=== PATIENT | female | born 1990 | race African-American/Black ===

== ENCOUNTER 2020-02-10 16:17 | Day surgery (SDC) | payer BC, SELFPAY ==
[2020-02-10 16:34] VITALS: BP 142/88; PULSE 127; RESP 18; TEMP 37.3; O2SAT 97
[2020-02-10] MEDS: MORPHINE SULFATE (*CRX) 4 MG/ML INJ IV PUSH (18:01)
[2020-02-10] MEDS: ONDANSETRON INJ 4 MG/2 ML VIAL IV PUSH (18:02)
[2020-02-10] MEDS: SODIUM CHLORIDE 0.9% IV 1,000 ML 999 ML IV CONT (18:02)
[2020-02-10 18:14] VITALS: BP 127/79; PULSE 103; RESP 20; TEMP 36.7; O2SAT 98
[2020-02-10 18:16] LABS: Basophils Percent Auto 0.2 % (0.2-1.2); Eosinophils Percent Auto 0.1 % (0-4.4); Hematocrit 38.3 % (37.0-47.0); Immature Granulocyte Percent A 0.6 % (0-0.5); Lymphocytes Absolute Auto 2.01 K/mm3 (0.9-3.2); Lymphocytes Percent Auto 11.2 % (18.3-44.2); Mean Corpuscular HGB Conc 33.9 g/dl (32-36); Mean Corpuscular Hemoglobin 27.5 pg (26-34); Mean Corpuscular Volume 81.1 fl (80-100); Mean Platelet Volume 11.5 fl (7.4-10.4); Monocytes Absolute Auto 0.7 K/mm3 (0.1-0.6); Monocytes Percent Auto 4.1 % (2.6-8.5); Neutrophils Percent Auto 83.8 % (45.5-73.1); Platelet Count Result 249 k/mm3 (150-375); Red Blood Count 4.72 M/mm3 (4.2-5.4); Red Cell Distribution Width 14.7 % (11.5-14.5); White Blood Count 17.9 K/mm3 (4.5-10.0)
[2020-02-10 18:27] LABS: Anion Gap 14 mmol/L (8-16); Blood Urea Nitrogen 8 mg/dL (7-17); Calcium 9.8 mg/dL (8.4-10.2); Carbon Dioxide 25 mmol/L (22-30); Chloride 101 mmol/L (98-107); Estimated CRCL calculation 86 ml/min; Estimated Glomerular Filt Rate > 60; Glucose 100 mg/dL (65-105); Potassium 3.7 mmol/L (3.4-5.0); Sodium 140 mmol/L (137-145)
[2020-02-10 18:29] LABS: Add Urine Microscopic? YES; Appearance Urine Cloudy (Clear); Bilirubin Urine Negative (Negative); Blood Urine 3+ (Negative); Color Urine Red (Yellow); Glucose Urine UA Negative (Negative); Ketones Urine Trace mg/dL (Negative); Leukocyte Esterase Ur 2+ LEU/UL (Negative); Mucus Urine Rare /lpf; Nitrate Urine Negative (Negative); Protein Urine 3+ mg/dL (Negative); RBC Urine >75 /hpf (0-2); Specific Grav Ur 1.018 (1.001-1.035); Squamous Epithelial Cell Urine Many /hpf (Few); Urobilinogen Urine Negative mg/dL (<2.0); WBC Urine 51-75 /hpf
[2020-02-10] MEDS: AMPICILLIN SULB 3 GM/NS 100 ML 3 GM/100 ML VIAL IVPB (18:41)
--- NOTE | 2020-02-10 19:02 | ED.GENADULT ---
HPI - General Adult General Chief complaint: Headache Stated complaint: back ache, fever, headache, chills - COVID Time Seen by Provider: 02/10/20 16:56 History of Present Illness HPI narrative: Patient is a 29-year-old female who presents ER with lower abdominal pain and fever. Patient on 01/26/2020 was found to have a 9-week that did not have a heartbeat. On 02/05/2020 after not passing her products of conception she was started on Cytotec. She sees Dr. Rice at [facility]. Patient reports high fever today. She has been having increased cramping in her lower abdomen with uptake and vaginal bleeding of 1 pad every 1-2 hours. Malodorous discharge reported by patient. Related Data Home Medications Medication Instructions Recorded Confirmed lfnczytmvqym-ipk-ssie-FA-vit K tablet PO 02/10/20 [Adults Multivitamin] Allergies Allergy/AdvReac Type Severity Reaction Status Date / Time No Known Allergies Allergy Verified 02/10/20 16:41 Review of Systems Review of Systems: All systems reviewed & are unremarkable except as noted in HPI and below Constitutional: Constitutional: Reports chills, Reports fever(s) and Reports weakness ENT: Denies nasal congestion and Denies sore throat Cardiovascular: Cardiovascular: Denies chest pain, Denies rapid heart rate and Denies radiating jaw, neck or arm pain Respiratory: Respiratory: Denies cough and Denies dyspnea Gastrointestinal: Gastrointestinal: Reports abdominal pain, Denies diarrhea, Denies nausea and Denies vomiting Genitourinary: Genitourinary: Reports abnormal vaginal bleeding and Denies vaginal discharge PMFSH Past Medical History Medical History (Updated 02/10/20 @ 19:15 by Dk Sky MD) Healthy female adult Surgical History Surgical History (Updated 02/10/20 @ 19:12 by Dk Sky MD) No pertinent past surgical history Social History Social History (Updated 02/10/20 @ 19:12 by Dk Sky MD) Smoking status: Never smoker Gender identity (if verbalized by the patient): Female Exam Narrative: Exam Narrative: GENERAL: Uncomfortable-appearing, well-nourished, and in no acute distress. HEAD: Normocephalic, atraumatic. CHEST: Clear to auscultation. No respiratory distress. HEART: Tachycardic and regular. Normal peripheral pulses. ABDOMEN: Soft, tender palpation suprapubic region, nondistended. Pelvic: Normal external genitalia, small amount of blood within the vagina that is dark in appearance that is oozing from the cervical os, patient with discomfort with insertion of speculum. No malodorous discharge. EXTREMITIES: Normal range of motion. No edema. SKIN: Warm, dry, no rash. NEURO: Alert and oriented x3. Course Course Emergency Course: Patient informed of results. Discussed case with Dr. Torrez. Patient will receive 3 g of Unasyn. She has been n.p.o. all day long. She will go to the OR this evening for a D&C. Vital Signs Vital signs: Vital Signs Temperature 99.1 F 02/10/20 16:34 Pulse Rate 127 H 02/10/20 16:34 Respiratory Rate 18 02/10/20 16:34 Blood Pressure 142/88 H 02/10/20 16:34 Pulse Oximetry 97 02/10/20 16:34 Temperature 98.1 F 02/10/20 18:14 Pulse Rate 103 H 02/10/20 18:14 Respiratory Rate 20 02/10/20 18:14 Blood Pressure 127/79 02/10/20 18:14 Pulse Oximetry 98 02/10/20 18:14 Medical Decision Making Vital Signs Vital Signs: Vital Signs Temperature 99.1 F 02/10/20 16:34 Pulse Rate 127 H 02/10/20 16:34 Respiratory Rate 18 02/10/20 16:34 Blood Pressure 142/88 H 02/10/20 16:34 Pulse Oximetry 97 02/10/20 16:34 Temperature 98.1 F 02/10/20 18:14 Pulse Rate 103 H 02/10/20 18:14 Respiratory Rate 20 02/10/20 18:14 Blood Pressure 127/79 02/10/20 18:14 Pulse Oximetry 98 02/10/20 18:14 Lab Data Result diagrams: 02/10/20 18:04 02/10/20 18:03 Labs: Lab Results 02/10/20 02/10/20 02/10/20 Range
--- NOTE | 2020-02-10 19:31 | WPDANESEPPF ---
Anes - Initial Pre Proc Eval Procedure: Operation Date: 02/10/20 18:50 Proposed Procedures p D&C Suction and Nava More MD Date/Time: 02/10/20 19:31 Pre Op Diagnosis: back ache, fever, headache, chills - COVID Patient Data Age: 29 Gender: F Height: 5 ft Weight: 84.3 kg Last Vital Signs Temp 36.7 C 02/10/20 18:14 Pulse 103 H 02/10/20 18:14 Resp 20 02/10/20 18:14 BP 127/79 02/10/20 18:14 Pulse Ox 98 02/10/20 18:14 Allergies Allergy/AdvReac Type Severity Reaction Status Date / Time No Known Allergies Allergy Verified 02/10/20 16:41 Home Medications Medication Instructions Recorded Confirmed Type fcslouliajew-bnv-mjyd-FA-vit K tablet PO 02/10/20 History [Adults Multivitamin] Laboratory Tests 02/10/20 02/10/20 02/10/20 18:03 18:04 18:04 WBC 17.9 K/mm3 H K/mm3 (4.5-10.0) RBC 4.72 M/mm3 M/mm3 (4.2-5.4) Hgb 13.0 g/dL g/dL (12.0-15.0) Hct 38.3 % % (37.0-47.0) MCV 81.1 fl fl (80-100) MCH 27.5 pg pg (26-34) MCHC 33.9 g/dl g/dl (32-36) RDW 14.7 % H % (11.5-14.5) Plt Count 249 k/mm3 k/mm3 (150-375) MPV 11.5 fl H fl (7.4-10.4) Immature Gran % (Auto) 0.6 % H % (0-0.5) Neut % (Auto) 83.8 % H % (45.5-73.1) Lymph % (Auto) 11.2 % L % (18.3-44.2) [place] % (Auto) 4.1 % % (2.6-8.5) Eos % (Auto) 0.1 % % (0-4.4) Baso % (Auto) 0.2 % % (0.2-1.2) Lymph # (Auto) 2.01 K/mm3 K/mm3 (0.9-3.2) [place] # (Auto) 0.7 K/mm3 H K/mm3 (0.1-0.6) Eos # (Auto) 0.0 K/mm3 K/mm3 (0-0.3) Baso # (Auto) 0.0 K/mm3 K/mm3 (0.0-0.1) Abs Immat Gran (auto) 0.10 K/mm3 H K/mm3 (0.00-0.031) Absolute Neuts (auto) 15.0 K/mm3 H K/mm3 (1.3-6.7) Absolute Nucleated RBC 0.0 K/mm3 K/mm3 (0.0-0.012) Nucleated RBC % 0.0 % % (0.0-0.2) Sodium 140 mmol/L mmol/L (137-145) Potassium 3.7 mmol/L mmol/L (3.4-5.0) Chloride 101 mmol/L mmol/L (98-107) Carbon Dioxide 25 mmol/L mmol/L (22-30) Anion Gap 14 mmol/L mmol/L (8-16) BUN 8 mg/dL mg/dL (7-17) Creatinine 0.80 mg/dL mg/dL (0.7-1.0) Estim Creat Clear Calc 86 ml/min ml/min Estimated GFR > 60 (59 - ) Glucose 100 mg/dL mg/dL (65-105) Calcium 9.8 mg/dL mg/dL (8.4-10.2) Beta HCG, Quant 1725.70 mIU/ML mIU/ML Urine Color Red H (Yellow) Urine Appearance Cloudy H (Clear) Urine pH 8.0 (5.0-9.0) Ur Specific [place] 1.018 (1.001-1.035) Urine Protein 3+ mg/dL H mg/dL (Negative) Urine Glucose (UA) Negative mg/dL mg/dL (Negative) Urine Ketones Trace mg/dL mg/dL (Negative) Ur Blood (Man) 3+ H (Negative) Urine Nitrate Negative (Negative) Urine Bilirubin Negative (Negative) Urine Urobilinogen Negative mg/dL mg/dL (<2.0) Leukocyte Esterase Rfl 2+ [place]/UL H BEVERLY/UL (Negative) Urine RBC >75 /hpf H /hpf (0-2) Urine WBC 51-75 /hpf H /hpf Ur Squamous Epith Cells Many /hpf H /hpf (Few) Urine Mucus Rare /lpf /lpf Patient hx anesthesia problems: none Family hx anesthesia problems: none PMFSH Past Medical History Medical History (Updated 02/10/20 @ 19:32 by Marcellus Cantor MD) Obesity Surgical History Surgical History (Updated 02/10/20 @ 19:32 by Marcellus Cantor MD) H/O laparoscopy No pertinent past surgical history Social History Social History Smoking status: Never smoker Gender identity (if verbalized by the patient): Female Anes - Eval Final PreProcedure Day of Procedure 02/10/20 19:31 Patient weight: obese H
--- NOTE | 2020-02-10 19:38 | PM.IMHP ---
H&P: HPI History of Present Illness Date/Time: 02/10/20 19:38 Chief complaint: back ache, fever, headache, chills - COVID Narrative: 29 y/o with first trimester SAB, received Cytotec last Wednesday. Began to have bleeding and cramping. Today she has had 103F fever and chills. Was seen in urgent care, where a COVID-19 test was negative. Was sent to the ED. Review of Systems Review of Systems: All systems reviewed & are unremarkable except as noted in HPI and below PMFSH Past Medical History Medical History (Updated 02/10/20 @ 19:41 by Tyshawn More MD) Obesity Surgical History Surgical History H/O laparoscopy No pertinent past surgical history Social History Social History Smoking status: Never smoker Gender identity (if verbalized by the patient): Female Meds Home Medications and Allergies Home Medications Medication Instructions Recorded Confirmed Type jvfsqimqmkvy-jsa-fdxw-FA-vit K tablet PO 02/10/20 History [Adults Multivitamin] Allergies Allergy/AdvReac Type Severity Reaction Status Date / Time No Known Allergies Allergy Verified 02/10/20 16:41 Vital Signs Vital Signs - 24 hr 02/10/20 16:34 02/10/20 18:14 Temperature 37.3 C 36.7 C Pulse Rate 127 H 103 H Respiratory Rate 18 20 Blood Pressure 142/88 H 127/79 Pulse Oximetry 97 98 Exam Const: Orientation/consciousness: patient oriented x3 Other: Well-developed, well-nourished female in no acute distress. Neck: Thyroid: thyroid normal Lymphatic: no lymphadenopathy noted (in neck, axilla or inguinal nodes) Resp: Effort & Inspection: normal respiratory effort Auscultation: clear to auscultation bilaterally Cardio: Rate: regular rate Rhythm: regular rhythm Heart sounds: S1 normal heart sound present and S2 normal heart sound present GI: Other: ABD: Soft, nontender, nondistended. No guarding or rebound tenderness. No hepatosplenomegaly. : General: Yes no CVA tenderness Other: Deferred to OR Back/Spine/Pelvis: Back: no CVA tenderness Skin: General skin exam: normal color and no rashes or lesions noted Neuro: General: patient oriented x3 Extrem: Other: Extremities: nontender with no edema Psych: Mental Status: mental status grossly normal Affect: normal affect H&P: Results Labs Labs: Short CBC 02/10/20 Range/Units 18:04 WBC 17.9 H (4.5-10.0) K/mm3 Hgb 13.0 (12.0-15.0) g/dL Hct 38.3 (37.0-47.0) % Plt Count 249 (150-375) k/mm3 BMP 02/10/20 18:03 Sodium 140 Potassium 3.7 Chloride 101 Carbon Dioxide 25 BUN 8 Creatinine 0.80 Glucose 100 Calcium 9.8 Urine 02/10/20 Range/Units 18:04 Urine Color Red H (Yellow) Urine Appearance Cloudy H (Clear) Urine pH 8.0 (5.0-9.0) Ur Specific [place] 1.018 (1.001-1.035) Urine Protein 3+ H (Negative) mg/dL Urine Glucose (UA) Negative (Negative) mg/dL Assessment and Plan Assessment and plan (1) Incomplete with infection: Code(s): O03.39 - Incomplete spontaneous with other complications Status: Acute Additional Plan I offered her dilation with suction curettage. She understands risks of surgery to include risks of anesthesia, risks of pain, infection, bleeding, blood products, thromboembolic phenomena and damage to adjacent structures such as bowel, bladder, ureters, blood vessels and nerves. She understands all these risks and elects to proceed with surgery.
[2020-02-10] MEDS: LIDOCAINE HCL 1% LOCAL INJ 20 ML VIAL 10 ML INFILTRATE (19:54)
[2020-02-10] MEDS: KETOROLAC 30 MG/ML VIAL (*BKC) IV PUSH (20:01)
--- NOTE | 2020-02-10 20:05 | PM.DS ---
DS: Admitting Diagnosis Admitting Diagnosis Admitting Diagnosis: Incomplete SAB with infection DS: Discharge Diagnosis Discharge Diagnosis (1) Incomplete with infection: Code(s): O03.39 - Incomplete spontaneous with other complications Status: Acute DS: Data Data Completed and Pending Pending studies at discharge: Pending at discharge 02/10/20 19:55 Surgical [PTH] Routine Labs on day of discharge: Labs from last 24 hours 02/10/20 02/10/20 02/10/20 18:04 18:04 18:03 WBC 17.9 H RBC 4.72 Hgb 13.0 Hct 38.3 MCV 81.1 MCH 27.5 MCHC 33.9 RDW 14.7 H Plt Count 249 MPV 11.5 H Immature Gran % (Auto) 0.6 H Neut % (Auto) 83.8 H Lymph % (Auto) 11.2 L [place] % (Auto) 4.1 Eos % (Auto) 0.1 Baso % (Auto) 0.2 Lymph # (Auto) 2.01 [place] # (Auto) 0.7 H Eos # (Auto) 0.0 Baso # (Auto) 0.0 Abs Immat Gran (auto) 0.10 H Absolute Neuts (auto) 15.0 H Absolute Nucleated RBC 0.0 Nucleated RBC % 0.0 Sodium 140 Potassium 3.7 Chloride 101 Carbon Dioxide 25 Anion Gap 14 BUN 8 Creatinine 0.80 Estim Creat Clear Calc 86 Estimated GFR > 60 Glucose 100 Calcium 9.8 Beta HCG, Quant 1725.70 Urine Color Red H Urine Appearance Cloudy H Urine pH 8.0 Ur Specific [place] 1.018 Urine Protein 3+ H Urine Glucose (UA) Negative Urine Ketones Trace Ur Blood (Man) 3+ H Urine Nitrate Negative Urine Bilirubin Negative Urine Urobilinogen Negative Leukocyte Esterase Rfl 2+ H Urine RBC >75 H Urine WBC 51-75 H Ur Squamous Epith Cells Many H Urine Mucus Rare Discharge Plan Discharge Clinical Impression: Incomplete with infection Patient Disposition: Still a Patient Condition: Stable Additional Instructions: Call or return if temperature above 100.4? F, increased abdominal pain, increased vaginal bleeding or any new problems. Prescriptions: No Action Adults Multivitamin 18 mg iron-400 mcg-25 mcg Tablet PO RF: 0 Follow-up/Referrals: PHYSICIAN,GEOSPATIAL SPECIALIST [Primary Care Provider] - 1 Week (Follow up with Dr. Orta within the next week. If she is unable to see you, then please follow up with Dr. More.)
[2020-02-10 20:07] VITALS: BP 126/76; PULSE 112; RESP 14; TEMP 36.9; O2SAT 100
--- NOTE | 2020-02-10 20:09 | PM.PROC ---
Procedure Note - Detailed Date of procedure: 02/10/20 Pre-op diagnosis: back ache, fever, headache, chills - COVID Incomplete SAB with infection Post-op diagnosis: same Procedure performed: Dilation and suction curettage under ultrasound guidance Description of procedure: The patient was taken to the operating room where she was prepared and draped in the usual sterile fashion in the dorsal lithotomy position. The bladder was drained with a red rubber catheter. A sterile speculum was placed into the vagina. The anterior lip of the cervix was grasped with a single-tooth tenaculum. Ten mL of 1% lidocaine was administered in a paracervical block. The cervix was noted already to be dilated. An 8mm dilator could be passed. The endometrium was visualized using transabdominal ultrasound performed by me. The 8mm curved tip suction curette was advanced. Suction curettage was performed and products of conception were aspirated. Sharp curettage was then performed until a good uterine cry was noted. A final pass with the suction curette was made. The uterus was empty to ultrasound exam. The tenaculum was removed. Hemostasis was excellent. Sponge, lap, needle and instrument counts were correct. The patient was taken to the recovery room in stable condition. I was present and scrubbed for the entire procedure. Implants: None Anesthesia: GETA and local (1% lidocaine) Surgeon: Tyshawn More MD Estimated blood loss (mL): 50 Drains: No Packing: No Pathology: yes (endometrial curettings) Complications: None Condition: stable Disposition: PACU Findings: The cervix was dilated at the start of the procedure. Products of conception were noted.
[2020-02-10 20:20] VITALS: BP 115/77; PULSE 90; RESP 16; O2SAT 100
--- NOTE | 2020-02-10 20:26 | SUR.PHASEI ---
2006; UNABLE TO CHART IVF IN JUN. PT ARRIVED INTO PACU WITH 400ML LEFT TO COUNT OF LR. 600ML WAS INFUSED IN OR.
[2020-02-10 20:31] VITALS: BP 120/74; PULSE 88; RESP 16; O2SAT 100
[2020-02-10 21:00] VITALS: BP 127/87; PULSE 87; RESP 16
--- NOTE | 2020-02-10 21:05 | SUR.PHASEII ---
2044; PT AWAKE AND ALERT. SPOUSE AT SIDE. PT IN RECLINER. EATING CRACKERS AND DRINKING JUICE. DENIES PAIN OR NAUSEA AT THIS TIME.
--- NOTE | 2020-02-10 21:25 | SUR.PHASEII ---
UNABLE TO CHART IN MAR. IVF TOTAL FOR PACU/OUTPATIENT WAS 200ML. WASTED 200ML LR. PT STATES READY TO GO HOME. MEETS DISCHARGE CRITERIA
== END 2020-02-10 21:26 | disposition home or self-care (01) ==
LOC: ANHED 20:17 → ANHSURGERY 02-15 10:19
PROVIDERS: Emergency Provider Emergency Medicine; Visit Provider Obstetrics & Gynecology
PROC: (CPT 59812; principal; 2020-02-10 18:50)
DX: O03.39 Incomplete spontaneous abortion with other complications (principal); E66.9 Obesity, unspecified
CPT/HCPCS: 59812; 36415; 80048; 81001; 81025; 84702; 85025; 87077; 87086; 87088; 87186; 88305; 96361; 96365; 96375; 99285; A9270; J0295; J1885; J2250; J2270; J2405; J2704; J3010; J7030

== ENCOUNTER 2020-06-14 11:47 | Outpatient (CLI) | payer OTHER, SELFPAY ==
[2020-06-14 12:20] LABS: Basophils Percent Auto 0.1 % (0.2-1.2); Eosinophils Absolute Auto 0.1 K/mm3 (0-0.3); Eosinophils Percent Auto 0.9 % (0-4.4); Hematocrit 38.3 % (37.0-47.0); Hemoglobin 12.7 g/dL (12.0-15.0); Immature Granulocyte Absolute 0.02 K/mm3 (0.00-0.031); Immature Granulocyte Percent A 0.3 % (0-0.5); Lymphocytes Absolute Auto 2.64 K/mm3 (0.9-3.2); Lymphocytes Percent Auto 34.2 % (18.3-44.2); Mean Corpuscular HGB Conc 33.2 g/dl (32-36); Mean Corpuscular Hemoglobin 25.6 pg (26-34); Mean Corpuscular Volume 77.1 fl (80-100); Mean Platelet Volume 11.3 fl (7.4-10.4); Monocytes Absolute Auto 0.5 K/mm3 (0.1-0.6); Monocytes Percent Auto 6.5 % (2.6-8.5); Neutrophils Absolute Auto 4.5 K/mm3 (1.3-6.7); Platelet Count Result 286 k/mm3 (150-375); Red Blood Count 4.97 M/mm3 (4.2-5.4); Red Cell Distribution Width 15.8 % (11.5-14.5); White Blood Count 7.7 K/mm3 (4.5-10.0)
[2020-06-14 13:20] LABS: HIV 1/2 Ab P24 Ag Result Negative (Negative)
[2020-06-14 13:31] LABS: Hepatitis B Surface Antigen Negative (Negative); Rubella IgG Antibody 34.8 IU/ML
[2020-06-14 13:45] LABS: Hepatitis C Virus Antibody Negative (Negative)
[2020-06-17 07:18] LABS: Rapid Plasma Reagin Non-Reactive (NonReactive)
== END 2020-06-14 11:48 | disposition home or self-care (01) ==
LOC: ANHLAB 11:48
PROVIDERS: Visit Provider Obstetrics & Gynecology
DX: Z34.90 Encounter for supervision of normal pregnancy, unspecified, unspecified trimester (principal); Z3A.00 Weeks of gestation of pregnancy not specified
CPT/HCPCS: 36415; 76801; 85025; 86592; 86703; 86762; 86803; 86850; 86900; 86901; 87340; G0432

== ENCOUNTER 2020-06-14 14:34 | Outpatient (CLI) | payer OTHER, SELFPAY ==
--- NOTE | ~2020-06-14 | US_ITS ---
EXAMINATION: US OB <= 14 weeks fetus DATE: 06/14/2020 15:02 INDICATION: Gestational dating TECHNIQUE: Real-time transabdominal obstetric ultrasound. FINDINGS: No prior studies for comparison. The uterus measures 11.5 x 6.5 x 6.9 cm. There is an intrauterine gestational sac, with pole id entified. The crown rump length measures 5.76 cm, which correlates with a estimated gestational age of 12 weeks 2 days. heart tones are identified measuring 169. Ovaries are not visualized. IMPRESSION: 1. SL IUP with an EGA of 12 weeks, 2 days (EDC by current ultrasound of 12/25/2020). Reviewed, dictated and finalized at location A. UNT RESOLUTION EXPERT IMPRESSION: 1. SL IUP with an EGA of 12 weeks, 2 days (EDC by current ultrasound of 12/26/19 21).
== END 2020-06-14 14:35 | disposition home or self-care (01) ==
LOC: ANHIMG 14:36
PROVIDERS: Visit Provider Obstetrics & Gynecology
DX: Z34.91 Encounter for supervision of normal pregnancy, unspecified, first trimester (principal); Z3A.00 Weeks of gestation of pregnancy not specified; Z3A.12 12 weeks gestation of pregnancy
CPT/HCPCS: 76801

== ENCOUNTER 2020-07-29 07:45 | Outpatient (CLI) | payer OTHER, SELFPAY ==
--- NOTE | ~2020-07-29 | US_ITS ---
EXAMINATION: US OB /maternal detail EXAM DATE: 07/29/2020 08:59 INDICATION: Z36.89 - Encounter for other specified screening. 2nd trimester. TECHNIQUE: Pelvic obstetrical transabdominal sonogram was performed by a technologist. There are mu ltiple grayscale and Doppler images available for interpretation. Comparison is made to prior examina tion from 06/14/2020. FINDINGS: There is a single fetus identified in vertex presentation with a heart rate of 152 beats pe r minute. The placenta is located in the anterior position. There is no sonographic evidence of retr oplacental hemorrhage identified. There is subjectively expected amount of amniotic fluid. BIOMETRIC DATA: Biparietal diameter (BPD): 4.2 cm ----------------> 18 weeks 5 days. Head circumference (HC): 15.9 cm ----------------> 18 weeks 5 days. Abdominal circumference (AC): 13.0 cm ----------> 18 weeks 4 days. Femur length (FL): 2.9 cm --------------------------> 18 weeks 6 days. These measurements are concordant. HC/AC ratio is 1.22 (The 5th -- 95th percentile range is 1.09-1.26. Estimated weight is 253 g +/- 37 g. This is the 44th percentile when the currently reported cl inical gestation age 18 weeks 5 days, clinical estimated date of delivery (DIMITRIS-OPE) 12/25/2020 is used . estimated gestational age based on measurements from this exam is also 18 weeks 5 days. ANATOMIC SURVEY: The following anatomy is identified and is sonographically normal in appearance: Cerebral ventricles Cerebellum Cisterna magna CTL-spine Diaphragm Stomach Bladder Three-vessel cord Cord insertion LVOT Following anatomy not well visualized or evaluated: Nuchal fold Kidneys Four-chamber heart. IMPRESSION: 1. Single fetus in vertex presentation with heart rate 152 beats per minute. 2. Estimated weight of 253 grams, 44th percentile using the currently reported clinical gestat ion age of 18 weeks 5 days, DIMITRIS(OPE) 12/25. 3. Incomplete anatomic survey. Visualized anatomy normal. Reviewed, dictated and finalized at location A. IMPRESSION: 1. Single fetus in vertex presentation with heart rate 152 beats per minute. 2. Estimated weight of 253 grams, 44th percentile using the currently re ported clinical gestation age of 18 weeks 5 days, DIMITRIS(OPE) 12/25. 3. Incomplete anatomic survey. Visualized anatomy normal.
== END 2020-07-29 07:46 | disposition home or self-care (01) ==
PROVIDERS: Visit Provider Obstetrics & Gynecology
DX: Z36.89 Encounter for other specified antenatal screening (principal); Z3A.18 18 weeks gestation of pregnancy
CPT/HCPCS: 76805

== ENCOUNTER 2020-08-29 09:56 | Outpatient (CLI) | payer OTHER, SELFPAY ==
--- NOTE | ~2020-08-29 | US_ITS ---
EXAMINATION: US OB /maternal detail DATE: 08/29/2020 10:52 INDICATION: Follow-up of incomplete anatomic survey, second trimester TECHNIQUE: Real-time ultrasound of the pelvis was performed. COMPARISON: 07/29/2020 FINDINGS: There is a single living fetus in vertex presentation. The placenta is anterior and 6.5 cm from the i nternal cervical os. heart rate is 152 beats per minute (bpm). cardiac activity and feta l movement are noted. The amniotic fluid index is subjectively normal. The four-chamber heart, nuchal fold, and kidneys appear unremarkable. IMPRESSION: 1. Single living fetus in vertex presentation. 2. Four chamber heart, new focal, and kidneys appear unremarkable. Reviewed, dictated and finalized at location A.
== END 2020-08-29 09:57 | disposition home or self-care (01) ==
PROVIDERS: PCP Obstetrics & Gynecology; Visit Provider Obstetrics & Gynecology
DX: Z34.90 Encounter for supervision of normal pregnancy, unspecified, unspecified trimester (principal); Z3A.00 Weeks of gestation of pregnancy not specified
CPT/HCPCS: 76805

== ENCOUNTER 2020-09-30 09:56 | Outpatient (CLI) | payer OTHER, SELFPAY ==
[2020-09-30 11:26] LABS: Basophils Percent Auto 0.1 % (0.2-1.2); Eosinophils Absolute Auto 0.4 K/mm3 (0-0.3); Hematocrit 30.8 % (37.0-47.0); Hemoglobin 9.8 g/dL (12.0-15.0); Immature Granulocyte Absolute 0.03 K/mm3 (0.00-0.031); Immature Granulocyte Percent A 0.3 % (0-0.5); Lymphocytes Absolute Auto 1.79 K/mm3 (0.9-3.2); Lymphocytes Percent Auto 20.6 % (18.3-44.2); Mean Corpuscular HGB Conc 31.8 g/dl (32-36); Mean Corpuscular Volume 81.7 fl (80-100); Mean Platelet Volume 11.2 fl (7.4-10.4); Monocytes Absolute Auto 0.6 K/mm3 (0.1-0.6); Monocytes Percent Auto 6.6 % (2.6-8.5); Neutrophils Absolute Auto 5.8 K/mm3 (1.3-6.7); Neutrophils Percent Auto 67.4 % (45.5-73.1); Nucleated Red Blood Cells Perc 0.2 % (0.0-0.2); Platelet Count Result 291 k/mm3 (150-375); Red Blood Count 3.77 M/mm3 (4.2-5.4); Red Cell Distribution Width 15.9 % (11.5-14.5); White Blood Count 8.7 K/mm3 (4.5-10.0)
[2020-09-30 11:42] LABS: Glucose 1 Hour PP 50gm Dose 103 mg/dL
[2020-10-02 16:09] LABS: HIV 1 2 Ag Ab 4th Gen w Rflxs Non-reactive (Non-reactive)
== END 2020-09-30 09:57 | disposition home or self-care (01) ==
PROVIDERS: PCP Obstetrics & Gynecology; Visit Provider Obstetrics & Gynecology
DX: Z34.90 Encounter for supervision of normal pregnancy, unspecified, unspecified trimester (principal); Z3A.00 Weeks of gestation of pregnancy not specified
CPT/HCPCS: 36415; 82947; 85025; 87389

== ENCOUNTER 2020-10-17 10:40 | Outpatient (CLI) | payer OTHER, SELFPAY ==
--- NOTE | ~2020-10-17 | US_ITS ---
EXAMINATION: US OB follow up EXAM DATE: 10/17/2020 11:09 INDICATION: ANAMARIA, EFW HTN 3rd trimester. TECHNIQUE: Pelvic obstetrical transabdominal sonogram was performed by a technologist. There are mu ltiple grayscale and Doppler images available for interpretation. Comparison is made to prior examina tion from 08/29/2020. FINDINGS: There is a single fetus identified in vertex presentation with a heart rate of 169 beats pe r minute. The placenta is located in the anterior position. There is no sonographic evidence of retr oplacental hemorrhage identified. The amniotic fluid index is 18.3 centimeters, which is normal. BIOMETRIC DATA: Biparietal diameter (BPD): 7.0 cm ----------------> 28 weeks 1 day. Head circumference (HC): 26.9 cm ----------------> 29.2. Abdominal circumference (AC): 26.0 cm ----------> 30 weeks 1 day. Femur length (FL): 5.3 cm --------------------------> 28 weeks 1 day. These measurements are concordant. HC/AC ratio is 1.04 (The 5th -- 95th percentile range is 0.99-1.21. Estimated weight is 1366 g +/- 205 g. This is the 14th percentile when the currently reported clinical gestation age 30 weeks 1 day, clinical estimated date of delivery (DIMITRIS-OPE) 12/25/2020 is use d. estimated gestational age based on measurements from this exam is 29 weeks 0 days, with an e stimated date of delivery (DIMITRIS-AUA) 01/02/2021. IMPRESSION: 1. Single fetus in vertex presentation with heart rate 169 beats per minute. 2. Estimated weight of 1366 grams, 14th percentile using the currently reported clinical gesta tion age of 30 weeks 1 day, DIMITRIS(OPE) 12/25. 3. ANAMARIA 18.3 cm, normal. Reviewed, dictated and finalized at location B. IMPRESSION: 1. Single fetus in vertex presentation with heart rate 169 beats per minute. 2. Estimated weight of 1366 grams, 14th percentile using the currently r eported clinical gestation age of 30 weeks 1 day, DIMITRIS(OPE) 12/25. 3. ANAMARIA 18.3 cm, normal.
== END 2020-10-17 10:41 | disposition home or self-care (01) ==
PROVIDERS: Visit Provider Obstetrics & Gynecology
DX: O16.9 Unspecified maternal hypertension, unspecified trimester (principal); Z3A.30 30 weeks gestation of pregnancy
CPT/HCPCS: 76816

== ENCOUNTER 2020-11-15 10:51 | Outpatient (CLI) | payer OTHER, SELFPAY ==
--- NOTE | ~2020-11-15 | US_ITS ---
EXAMINATION: US OB follow up DATE: 11/15/2020 11:36 INDICATION: Encounter for supervision of normal , third trimester TECHNIQUE: Real-time ultrasound of the pelvis was performed. The interpreting radiologist was not pre sent for the study. COMPARISON: 10/15/2020 FINDINGS: There is a single living fetus in vertex presentation. The placenta is anterior. card iac activity and movement are noted. heart rate is 138 beats per minute (bpm). The amniot ic fluid index is 14.1 cm which is normal. The following biometric data were obtained: Biparietal diameter (BPD): 7.7 cm; head circumference (HC): 29.9 cm; abdominal circumference (AC): 28 .1 cm; femur length (FL): 6.0 cm. These measurements are concordant. Estimated weight is 1882 g +/- 282 g, which correlates with the 4th percentile when 12/25/2020 i s used as estimated date of delivery. As single measurements, these parameters are each equal to the following estimated gestational ages w ith ranges of +/- 2 standard deviations: BPD: 31 weeks 2 days +/- 3 weeks 1 days. HC: 33 weeks 1 days +/- 3 weeks 0 days. AC: 32 weeks 1 days +/- 3 weeks 0 days. FL: 31 weeks 4 days +/- 3 weeks 0 days. estimated gestational age based solely on measurements from this exam is 32 weeks 0 days +/- 2 weeks 2 days. IMPRESSION: 1. Single living fetus in vertex presentation. 2. Estimated weight is 1882 g +/- 282 g, which correlates with the 4th percentile when is used as estimated date of delivery. 3. Normal amniotic fluid index. Reviewed, dictated and finalized at location B. IMPRESSION: 1. Single living fetus in vertex presentation. 2. Estimated weight is 1882 g +/- 282 g, which correlates with the 4th pe rcentile when 12/25/2020 is used as estimated date of delivery. 3. Normal amniotic fluid index.
== END 2020-11-15 10:52 | disposition home or self-care (01) ==
LOC: ANHIMG 10:52
PROVIDERS: Visit Provider Obstetrics & Gynecology
DX: Z34.93 Encounter for supervision of normal pregnancy, unspecified, third trimester (principal); Z3A.32 32 weeks gestation of pregnancy
CPT/HCPCS: 76816

== ENCOUNTER 2020-11-19 14:23 | Observation (INO) | payer OTHER, SELFPAY ==
[2020-11-19 15:38] VITALS: BP 121/80; PULSE 96
[2020-11-19 15:47] LABS: Add Urine Microscopic? YES; Appearance Urine Clear (Clear); Bacteria Urine Trace /hpf; Bilirubin Urine Negative (Negative); Blood Urine Negative (Negative); Color Urine Yellow (Yellow); Glucose Urine UA Negative (Negative); Ketones Urine 1+ mg/dL (Negative); Leukocyte Esterase Ur Negative LEU/UL (NEGATIVE); Mucus Urine Rare /lpf; Nitrate Urine Negative (Negative); Protein Urine 2+ mg/dL (Negative); RBC Urine 0-2 /hpf (0-2); Specific Grav Ur 1.024 (1.001-1.035); Squamous Epithelial Cell Urine Few /hpf (Few); Urobilinogen Urine Negative mg/dL (<2.0); WBC Urine 0-3 /hpf (0-3)
[2020-11-19 19:31] VITALS: BMI 39.4
--- NOTE | 2020-11-22 12:40 | PM.OBTRLD ---
OB - Triage/Final Diagnosis Visit Information Comments/Additional reasons for admission: I have assessed the risk for this patient, Marbella Michael, and determined that she would benefit from observation care. Evaluation Laboratory results: Laboratory Tests 11/19/20 15:35 Urine Color Yellow Urine Appearance Clear Urine pH 6.0 Ur Specific [place] 1.024 Urine Protein 2+ H Urine Glucose (UA) Negative Urine Ketones 1+ H Ur Blood (Man) Negative Urine Nitrate Negative Urine Bilirubin Negative Urine Urobilinogen Negative Ur Leukocyte Esterase Negative Urine RBC 0-2 Urine WBC 0-3 Ur Squamous Epith Cells Few Urine Bacteria Trace Urine Mucus Rare Final Diagnosis (1) Nausea/vomiting in : Code(s): O21.9 - Vomiting of , unspecified Status: Acute
== END 2020-11-19 17:40 | disposition home or self-care (01) ==
PROVIDERS: Admitting Provider Obstetrics & Gynecology; Visit Provider Obstetrics & Gynecology
DX: O21.9 Vomiting of pregnancy, unspecified (principal); Z3A.00 Weeks of gestation of pregnancy not specified
CPT/HCPCS: 81001; 87086; 87088; G0378; G0379

== ENCOUNTER 2020-12-06 10:22 | Outpatient (RCR) | payer OTHER, SELFPAY ==
--- NOTE | ~2020-12-06 | US_ITS ---
EXAMINATION: US OB limited EXAM DATE: 12/06/2020 12:10 INDICATION: ANAMARIA-IUGR IUGR. 3rd trimester. TECHNIQUE: Pelvic obstetrical transabdominal sonogram was performed by a technologist. There are mu ltiple grayscale and Doppler images available for interpretation. Comparison is made to prior examina tion from 11/15/2020. FINDINGS: There is a single fetus identified in vertex presentation with a heart rate of 141 beats pe r minute. The placenta is located in the anterior position. There is no sonographic evidence of retr oplacental hemorrhage identified. The amniotic fluid index is 14.5 centimeters, which is normal. IMPRESSION: 1. Single fetus in vertex presentation with heart rate 141 beats per minute. 2. Normal ANAMARIA 14.5 cm. Reviewed, dictated and finalized at location B.
[2020-12-06 11:19] VITALS: BP 140/91; PULSE 93
== END 2020-12-18 10:13 | disposition home or self-care (01) ==
LOC: ANHOBOP 10:22
PROVIDERS: Visit Provider Obstetrics & Gynecology
DX: O36.5930 Maternal care for other known or suspected poor fetal growth, third trimester, not applicable or unspecified (principal); Z3A.37 37 weeks gestation of pregnancy
CPT/HCPCS: 59025; 76815

== ENCOUNTER 2020-12-12 09:14 | Outpatient (CLI) | payer OTHER, SELFPAY ==
[2020-12-12 09:53] LABS: Hematocrit 39.9 % (37.0-47.0); Hemoglobin 12.9 g/dL (12.0-15.0); Mean Corpuscular HGB Conc 32.3 g/dl (32-36); Mean Corpuscular Volume 86.6 fl (80-100); Platelet Count Result 220 k/mm3 (150-375); Red Blood Count 4.61 M/mm3 (4.2-5.4); Red Cell Distribution Width 18.6 % (11.5-14.5); White Blood Count 10.2 K/mm3 (4.5-10.0)
[2020-12-13 10:40] LABS: Rapid Plasma Reagin Non-Reactive (NonReactive)
== END 2020-12-12 09:15 | disposition home or self-care (01) ==
PROVIDERS: Visit Provider Obstetrics & Gynecology
DX: Z01.812 Encounter for preprocedural laboratory examination (principal); O10.93 Unspecified pre-existing hypertension complicating the puerperium; Z3A.38 38 weeks gestation of pregnancy
CPT/HCPCS: 36415; 85027; 86592; 86850; 86900; 86901

== ENCOUNTER 2020-12-13 05:38 | Inpatient (IN) | payer OTHER, SELFPAY ==
--- NOTE | 2020-11-29 15:58 | PC.NURSE ---
VERIFIED WITH OR SCHEDULE AND PATIENT-C/S ON 12/13/20 AT 1200 PATIENT GIVEN REQUISITION FOR LAB DRAW ON 12/12/20
--- NOTE | 2020-12-11 12:37 | P.HP_ITS ---
H&P: HPI History of Present Illness Date/Time: 12/11/20 12:37 [id number] at 38+2 with h/o prior C/s coming in for el ective repeat C/S. complicated by chronic HTN and IUGR. No complaints Chief Complaint: 38 weeks, prior C/S, IUGR, chronic HTN Review of Systems Review of Systems: All systems reviewed & are unremarkable except as noted in HPI and below PMFSH Past Medical History Medical History Encounter for anatomic survey Missed x1 Obesity Surgical History Surgical History H/O laparoscopy History of dilation and curettage 2020 Previous section x1 Family History Family History Sibling Hypertension Father Type 2 diabetes mellitus Social History Social History Smoking status: Never smoker Alcohol intake: never Substance use: never Gender identity (if verbalized by the patient): Female Spiritual care concerns: No Meds Home Medications and Allergies Home Medications Medication Instructions Recorded Confirmed Type docosahexaenoic acid 200 mg capsule mg PO 05/10/20 11/29/20 History ondansetron 4 mg disintegrating 4 mg PO Q6H PRN #30 tablet 06/21/20 11/29/20 Rx tablet aspirin 81 mg chewable tablet 81 mg PO DAILY 08/12/20 11/29/20 History ferrous sulfate 325 mg PO BID 11/29/20 11/29/20 History Allergies Allergy/AdvReac Type Severity Reaction Status Date / Time No Known Allergies Allergy Verified 12/06/20 09:53 Exam Const: General: healthy appearing, no acute distress, alert and awake Resp: Auscultation: clear to auscultation bilaterally Cardio: Rate: regular rate Rhythm: regular rhythm GI: Inspection: non-distended GI Palp: Yes Soft to palpation, No Tenderness to palpation present (GI) and Yes Other GI palpation findings present (gravid) Extrem: General: no calf tenderness and edema (trace) Psych: Mental Status: mental status grossly normal Assessment and Plan Assessment and plan (1) History of delivery: Code(s): Z98.891 - History of uterine scar from previous surgery Status: Acute Assessment and Plan: She opts for repeat C/S and signed consent after risks, benefits, complications, and alternatives discussed (2) IUGR (intrauterine growth restriction): Status: Acute Assessment and Plan: testing has been reassuring other than low EFW (3) Hypertension affecting in third trimester: Code(s): O16.3 - Unspecified maternal hypertension, third trimester Status: Acute Assessment and Plan: BP normal to mildly elevated, no signs or symptoms of superimposed preeclampsia. Delivery recommended at 38 weeks due to chronic HTN
[2020-12-13] VITALS (70 sets, daily range): BP systolic 83–155; BP diastolic 40–102; PULSE 71–143; RESP 12–20; TEMP 36.2–37.3; O2SAT 94–100; BMI 40.5; BMI 40.8
[2020-12-13] MEDS: LACTATED RINGERS 1,000 ML 999 ML IV CONT (06:26)
--- NOTE | 2020-12-13 06:31 | LDADM ---
This patient, Marbella Michael, was admitted to Labor/Delivery/Recovery 120 on 12/13/20 at 05:38. Plans for labor, pain management and were discussed with patient. Patient/family oriented to hospital policies and general routines including ID bracelet, bed and alarms, visiting hours, pain management, procedures, bathroom and other care routines, personal items, smoking policy, room service/diet and guest tray routines, infant security routines, and visiting hours. Patient/Family are encouraged to report perceived risks to care and to ask questions if they do not understand what they are told or what they should do. See OBIX for further documentation.
--- NOTE | 2020-12-13 07:01 | WPDANESEPPF ---
Anes - Initial Pre Proc Eval Procedure: Operation Date: 12/13/20 07:45 Proposed Procedures p Repeat Section - Angelique Meyers MD Date/Time: 12/13/20 07:01 Surgeon: Angelique Meyers MD Pre Op Diagnosis: Section Patient Data Age: 30 Gender: F Height: 1.52 m Weight: 95 kg Last Vital Signs Pulse 96 12/13/20 07:01 BP 147/101 H 12/13/20 07:01 Allergies Allergy/AdvReac Type Severity Reaction Status Date / Time No Known Allergies Allergy Verified 12/06/20 09:53 Home Medications Medication Instructions Recorded Confirmed Type aspirin 81 mg chewable tablet 81 mg PO DAILY 08/12/20 12/13/20 History ferrous sulfate 325 mg PO BID 11/29/20 11/29/20 History [id number] fumarate-FA 1 tablet PO DAILY 12/13/20 12/13/20 History [] Patient hx anesthesia problems: none Family hx anesthesia problems: none PMFSH Past Medical History Medical History Encounter for anatomic survey Missed x1 Obesity Surgical History Surgical History H/O laparoscopy History of dilation and curettage 2020 Previous section x1 Family History Family History Sibling Hypertension Father Type 2 diabetes mellitus Social History Social History Smoking status: Never smoker Second hand tobacco smoke exposure: No Alcohol intake: never Substance use: never Gender identity (if verbalized by the patient): Female Spiritual care concerns: No Anes - Eval Final PreProcedure Day of Procedure 12/13/20 07:01 Patient weight: obese Heart: regular rate and rhythm Lungs: clear to auscultation Airway: Mallampati scale class II Neurological: alert and oriented Last oral intake: >/= 8 hours ASA classification: II Emergent: no Anesthetic plan: proceed Anesthesia type and monitoring: regional spinal and standard monitoring Informed Consent: The patient's anesthetic plan and its attendant risks and benefits were discussed with the patient/family/POA. Questions were solicited and answers provided to the satisfaction of the patient/family/POA.
[2020-12-13] MEDS: LACTATED RINGERS 1,000 ML 125 ML IV CONT ×2 (07:28→09:21)
[2020-12-13 07:46] LABS: Alanine Aminotransferase 15 U/L (4-35); Albumin Level 3.3 g/dL (3.5-5.1); Alkaline Phosphatase 779 U/L (38-126); Anion Gap 3 mmol/L (8-16); Aspartate Amino Transferase 27 U/L (14-36); Bilirubin,Total 0.3 mg/dL (0.2-1.3); Blood Urea Nitrogen 8 mg/dL (7-17); Calcium 9.4 mg/dL (8.4-10.2); Carbon Dioxide 25 mmol/L (22-30); Chloride 104 mmol/L (98-107); Estimated CRCL calculation 119 ml/min; Estimated Glomerular Filt Rate > 60; Glucose 86 mg/dL (65-110); Potassium 3.9 mmol/L (3.4-5.0); Sodium 132 mmol/L (137-145)
[2020-12-13 07:50] LABS: Add Urine Microscopic? YES; Appearance Urine Clear (Clear); Bacteria Urine Trace /hpf; Bilirubin Urine Negative (Negative); Blood Urine Negative (Negative); Color Urine Yellow (Yellow); Glucose Urine UA Negative (Negative); Ketones Urine Negative (Negative); Leukocyte Esterase Ur Negative LEU/UL (NEGATIVE); Mucus Urine Rare /lpf; Nitrate Urine Negative (Negative); Protein Urine Negative (Negative); RBC Urine 0-2 /hpf (0-2); Specific Grav Ur 1.021 (1.001-1.035); Squamous Epithelial Cell Urine Occasional /hpf (Few); Urobilinogen Urine Negative mg/dL (<2.0); WBC Urine 0-3 /hpf (0-3)
--- NOTE | 2020-12-13 07:56 | WPDHPUPDATE1 ---
History and Physical Update Update Date/Time: 12/13/20 07:56 History and Physical has been reviewed, including an updated exam of the patient. There are NO changes in the patient's condition. Risks, benefits, and alternatives have been discussed and questions answered. Patient agrees to proceed with procedure.
--- NOTE | 2020-12-13 07:58 | W.PM.PROC2 ---
Procedure Note - Detailed Date of Procedure 12/13/20 Pre-op Diagnosis 38+2 weeks gestation, prior Section, chronic HTN, IUGR Post-op Diagnosis same Procedure Performed Repeat LT Surgeon Angelique Meyers MD Anesthesia spinal Indications at 38+2 with prior C/S, chronic HTN, IUGR Findings Female infant, cephalic, weight 5# 6oz; Apgars 8/9; normal uterus, tubes, and ovaries Description of Procedure She was taken to the operating room where spinal anesthesia was obtained and found to be adequate. She was prepared and draped in the normal sterile fashion in the dorsal supine position with a leftward tilt. A Pfannenstiel skin incision was made in an ellipse removing her prior keloid using the scalpel. The incision was carried down to the underlying layer of fascia. The fascia was incised in the midline with the scalpel. That incision was then extended laterally with the Quiñones scissors. The underlying rectus muscles were dissected off bluntly and sharply. The peritoneum was entered sharply and extended inferiorly and superiorly with good visualization of the bladder. The vesicouterine peritoneum was tented up and entered sharply with the Metzenbaum scissors. The bladder flap was created sharply. The bladder blade was reinserted. The lower uterine segment was incised in a transverse fashion with the scalpel and then digitally stretched in a cephalocaudal direction. The membranes were ruptured with clear fluid noted. The infant's head was delivered atraumatically. There was a loose nuchal cord x1 which was reduced easily. The shoulders and body were delivered easily. The cord was clamped x2 and cut. The was passed to the waiting nurse. Cord gas and cord blood was obtained. The placenta was manually extracted. The uterus was exteriorized and cleared of all clots and debris. The uterine incision was closed using 0 Vicryl in a running locked fashion. The uterus was returned to the abdomen. The gutters were cleared of all clots and debris. The uterine incision was reinspected, and couple bleeding points were noted in the midline. Those were controlled easily using 0 Vicryl [id number]-[id number] sutures. The rectus muscles were then inspected. Any bleeding points were cauterized. The rectus muscles reapproximated using an 0 Vicryl [id number]-jrhcl suture. The fascia was then closed using 0 Vicryl in a running fashion. The subcutaneous tissue was irrigated. All bleeding points were cauterized. Subcutaneous tissue was reapproximated using 2 0 Vicryl [id number]-[id number]-fklmm sutures. The skin was then closed using Insorb absorbable enma. She tolerated the procedure well. Sponge, lap, needle, and instrument counts were correct x2. She was taken to the recovery area in stable condition. Estimated Blood Loss 170 Drains Yes ([place]) Packing No Pathology yes Complications No immediate complications Condition stable Disposition floor
[2020-12-13] MEDS: OXYTOCIN 30 UNITS/NS 500 ML 30 UNITS/500 ML BAG 125 UNITS IV CONT (09:21)
[2020-12-13] MEDS: diphenhydrAMINE HCl INJ 50 MG/ML VIAL 25 MG IV PUSH (11:22)
--- NOTE | 2020-12-13 11:26 | PC.NURSE ---
Patient transferred to post room #285 per stretcher from labor and delivery. Support person present. Oriented to unit, room, information board, rooming in, admission packet and security measures. Patient verbalizes understanding.
[2020-12-13] MEDS: LORATADINE 10 MG TABLET PO (12:56)
[2020-12-13] MEDS: KETOROLAC 30 MG/ML VIAL (*BKC) IV PUSH ×2 (13:30→19:51)
[2020-12-13] MEDS: DEXTROSE 5%/0.45% SOD CHL 1,000 ML 125 ML IV CONT (13:33)
[2020-12-13] MEDS: diphenhydrAMINE HCl INJ 50 MG/ML VIAL IV PUSH ×2 (13:58→19:51)
[2020-12-14] MEDS: KETOROLAC 30 MG/ML VIAL (*BKC) IV PUSH ×2 (03:40→10:14)
[2020-12-14] MEDS: diphenhydrAMINE HCl INJ 50 MG/ML VIAL IV PUSH ×2 (03:40→10:14)
[2020-12-14 04:00] VITALS: BP 126/88; PULSE 102; RESP 16; TEMP 37.2; O2SAT 100
[2020-12-14 04:46] LABS: Basophils Percent Auto 0.1 % (0.2-1.2); Eosinophils Absolute Auto 0.1 K/mm3 (0-0.3); Eosinophils Percent Auto 0.4 % (0-4.4); Hemoglobin 10.5 g/dL (12.0-15.0); Immature Granulocyte Absolute 0.05 K/mm3 (0.00-0.031); Immature Granulocyte Percent A 0.4 % (0-0.5); Lymphocytes Absolute Auto 3.06 K/mm3 (0.9-3.2); Lymphocytes Percent Auto 22.6 % (18.3-44.2); Mean Corpuscular HGB Conc 33.9 g/dl (32-36); Mean Corpuscular Hemoglobin 28.7 pg (26-34); Mean Corpuscular Volume 84.7 fl (80-100); Mean Platelet Volume 12.3 fl (7.4-10.4); Monocytes Absolute Auto 0.8 K/mm3 (0.1-0.6); Monocytes Percent Auto 5.6 % (2.6-8.5); Neutrophils Absolute Auto 9.6 K/mm3 (1.3-6.7); Neutrophils Percent Auto 70.9 % (45.5-73.1); Platelet Count Result 183 k/mm3 (150-375); Red Blood Count 3.66 M/mm3 (4.2-5.4); Red Cell Distribution Width 18.6 % (11.5-14.5); White Blood Count 13.5 K/mm3 (4.5-10.0)
[2020-12-14 07:15] VITALS: BP 149/89; PULSE 106; RESP 20; TEMP 36.4; O2SAT 100
--- NOTE | 2020-12-14 07:17 | P.PNOB_ITS ---
OB - PN: Subj Subjective Date/time seen: 12/14/20 07:17 She states she tolerated liquids. Has adequate pain control. Has not had solid foods. Has not ambulated. Did well sitting up in chair. Not nauseous this morning. OB - PN: Obj Data Labs CBC & Chem 7: 12/14/20 04:13 12/13/20 07:15 Labs: Laboratory Results - last 24 hr 12/13/20 12/13/20 12/14/20 07:15 07:21 04:13 WBC 13.5 H RBC 3.66 L Hgb 10.5 L Hct 31.0 L MCV 84.7 MCH 28.7 MCHC 33.9 RDW 18.6 H Plt Count 183 MPV 12.3 H Immature Gran % (Auto) 0.4 Neut % (Auto) 70.9 Lymph % (Auto) 22.6 [place] % (Auto) 5.6 Eos % (Auto) 0.4 Baso % (Auto) 0.1 L Lymph # (Auto) 3.06 [place] # (Auto) 0.8 H Eos # (Auto) 0.1 Baso # (Auto) 0.0 Abs Immat Gran (auto) 0.05 H Absolute Neuts (auto) 9.6 H Absolute Nucleated RBC 0.0 Nucleated RBC % 0.0 Sodium 132 L Potassium 3.9 Chloride 104 Carbon Dioxide 25 Anion Gap 3 L BUN 8 Creatinine 0.60 L Estim Creat Clear Calc 119 Estimated GFR > 60 Glucose 86 Uric Acid 3.0 Calcium 9.4 Total Bilirubin 0.3 AST 27 ALT 15 Alkaline Phosphatase 779 H Total Protein 7.0 Albumin 3.3 L Urine Color Yellow Urine Appearance Clear Urine pH 6.0 Ur Specific [place] 1.021 Urine Protein Negative Urine Glucose (UA) Negative Urine Ketones Negative Ur Blood (Man) Negative Urine Nitrate Negative Urine Bilirubin Negative Urine Urobilinogen Negative Ur Leukocyte Esterase Negative Urine RBC 0-2 Urine WBC 0-3 Ur Squamous Epith Cells Occasional Urine Bacteria Trace Urine Mucus Rare OB - PN A/P Assessment and Plan (1) History of delivery: Code(s): Z98.891 - History of uterine scar from previous surgery Status: Acute Assessment and Plan: POD1 s/p repeat c/s- doing well. Continue routine post op care. (2) Hypertension affecting in third trimester: Code(s): O16.3 - Unspecified maternal hypertension, third trimester Status: Acute Assessment and Plan: BP stable. Time Spent With Patient Time: Total time spent is greater than 50% in coordination of care (as documented) at patient's floor/unit and/or counseling patient: Exam Const: General: comfortable and no acute distress Resp: Effort & Inspection: normal respiratory effort Cardio: Rate: regular rate GI: Other: Uterus firm appropriate tenderness, at umb incision c/d/i Extrem: General: normal to inspection Other: non tender Psych: Mental Status: mental status grossly normal Affect: normal affect
[2020-12-14] MEDS: MULTIVIT/MIN/PREN/FOL AC/IRON TABLET 1 TAB PO (10:08)
[2020-12-14] MEDS: DOCUSATE SODIUM 100 MG CAPSULE PO ×2 (10:08→17:27)
[2020-12-14 12:30] VITALS: BP 135/91; PULSE 99; RESP 20; TEMP 36.4; O2SAT 100
[2020-12-14] MEDS: POLYSACCHARIDE IRON COMPLEX 150 MG CAPSULE PO (17:26)
[2020-12-14] MEDS: HYDROcodone/acetaminophen (*CRX) 5-325 MG TABLET 1 TAB PO (17:26)
[2020-12-14] MEDS: IBUPROFEN 600 MG TABLET PO (17:26)
[2020-12-14 20:00] VITALS: BP 145/93; PULSE 100; RESP 16; TEMP 36.4; O2SAT 100
[2020-12-15] VITALS: BP 140/93; PULSE 89
[2020-12-15] MEDS: HYDROcodone/acetaminophen (*CRX) 5-325 MG TABLET 1 TAB PO ×4 (01:04→14:37)
[2020-12-15] MEDS: IBUPROFEN 600 MG TABLET PO ×3 (01:04→14:36)
[2020-12-15 05:00] VITALS: BP 135/79; PULSE 92
--- NOTE | 2020-12-15 08:45 | PC.NURSE ---
PT introductions made and plan of care discussed per post op c section, pain management, bottle feeding, daily care activities, PIH symptoms and pending discharge to home. PT verbalized understanding of such care. PT received education and instructions per one to one discussion, mom baby care guide and demonstration. PT and fob both recipients of instructions and no barriers to learning identified at this time.
[2020-12-15 09:00] VITALS: BP 150/100; PULSE 100; RESP 18; TEMP 36.8; O2SAT 100
[2020-12-15] MEDS: SIMETHICONE 80 MG TAB.CHEW PO (09:10)
[2020-12-15] MEDS: DOCUSATE SODIUM 100 MG CAPSULE PO (09:10)
--- NOTE | 2020-12-15 09:22 | PM.OBPNVD ---
OB - PN: Subj Subjective Date/time seen: 12/15/20 0715 She has adequate pain control. Has ambulated without problems. Lochia decreasing. No leg pain. Positive flatus. No headache, scotomata or RUQ pain. OB - PN: Obj Data Labs CBC & Chem 7: 12/14/20 04:13 12/13/20 07:15 OB - PN A/P Assessment and Plan (1) History of delivery: Code(s): Z98.891 - History of uterine scar from previous surgery Status: Acute Assessment and Plan: She is doing well. She wishes to go home. (2) Hypertension affecting in third trimester: Code(s): O16.3 - Unspecified maternal hypertension, third trimester Status: Acute Assessment and Plan: Isolated elevated blood pressures last pm. No PIH symptoms. Will check more blood pressures if remain elevated will check labs. If not then will allow discharge to home. Discussed discharge precautions. Time Spent With Patient Time: Total time spent is greater than 50% in coordination of care (as documented) at patient's floor/unit and/or counseling patient: Exam Const: General: comfortable and no acute distress Resp: Effort & Inspection: normal respiratory effort GI: Other: fundus firm -1um, appropriate tender incision clean dry intact Skin: General skin exam: normal color Extrem: Other: nontender no edema bilat Psych: Mental Status: mental status grossly normal Affect: normal affect
[2020-12-15 11:18] LABS: Basophils Percent Auto 0.2 % (0.2-1.2); Eosinophils Absolute Auto 0.2 K/mm3 (0-0.3); Eosinophils Percent Auto 1.8 % (0-4.4); Hematocrit 30.6 % (37.0-47.0); Hemoglobin 10.3 g/dL (12.0-15.0); Immature Granulocyte Absolute 0.08 K/mm3 (0.00-0.031); Immature Granulocyte Percent A 0.7 % (0-0.5); Lymphocytes Absolute Auto 2.37 K/mm3 (0.9-3.2); Lymphocytes Percent Auto 20.3 % (18.3-44.2); Mean Corpuscular HGB Conc 33.7 g/dl (32-36); Mean Corpuscular Hemoglobin 29.2 pg (26-34); Mean Corpuscular Volume 86.7 fl (80-100); Mean Platelet Volume 11.9 fl (7.4-10.4); Monocytes Absolute Auto 0.9 K/mm3 (0.1-0.6); Monocytes Percent Auto 7.6 % (2.6-8.5); Neutrophils Absolute Auto 8.1 K/mm3 (1.3-6.7); Neutrophils Percent Auto 69.4 % (45.5-73.1); Platelet Count Result 181 k/mm3 (150-375); Red Blood Count 3.53 M/mm3 (4.2-5.4); Red Cell Distribution Width 18.8 % (11.5-14.5); White Blood Count 11.7 K/mm3 (4.5-10.0)
[2020-12-15 11:33] LABS: Alanine Aminotransferase 17 U/L (4-35); Albumin Level 3.2 g/dL (3.5-5.1); Alkaline Phosphatase 504 U/L (38-126); Anion Gap 6 mmol/L (8-16); Aspartate Amino Transferase 35 U/L (14-36); Bilirubin,Total 0.3 mg/dL (0.2-1.3); Blood Urea Nitrogen 5 mg/dL (7-17); Calcium 9.1 mg/dL (8.4-10.2); Carbon Dioxide 27 mmol/L (22-30); Chloride 106 mmol/L (98-107); Estimated CRCL calculation 102 ml/min; Estimated Glomerular Filt Rate > 60; Glucose 92 mg/dL (65-110); Potassium 3.6 mmol/L (3.4-5.0); Sodium 139 mmol/L (137-145); Uric Acid 4.5 mg/dL (2.5-7.5)
--- NOTE | 2020-12-15 16:20 | PC.NURSE ---
PT discharged to home ambulatory accompanied by fob and infant and taken to waiting car. Follow up appts confirmed
[2020-12-16 14:10] LABS: Creatinine Urine 73.9 mg/dL; Total Protein Urine Random 22 mg/dL
--- NOTE | 2021-01-13 10:48 | PM.OBDSVD ---
DS: Admitting Diagnosis Discharge Date 12/15/20 Admitting Diagnosis Elective repeat ceserean section. Chronic hypertension. Intrauterine growth restriction. DS: Discharge Diagnosis Discharge Diagnosis (1) Hypertension affecting in third trimester: Code(s): O16.3 - Unspecified maternal hypertension, third trimester Status: Acute (2) History of delivery: Code(s): Z98.891 - History of uterine scar from previous surgery Status: Acute OB - DS: Summary Hospital Course Hospital Course: Patient was admitted on 12/13/20 and had an uncomplicated planned elective repeat ceserean section. PNC significant for chronic hypertension. Post operatively she did well. On post op day 2 she had elevated blood pressures. The range were consistent with her blood pressures during . No severe range blood pressures. She had PIH labs which were normal. She denies any severe headaches, scotomata or RUQ pain. She had adequate pain control. She was ambulating well. Tolerating regular diet. She wished to go home. Incsion was healing well. She was instructed to take blood pressure at home. She was instructed on blood pressure criteria to call in for and instructed on PIH symptoms to call in for. OB Procedures : NST and Ultrasound OB Procedures Intrapartum: OB Procedures: : None Peripartum Data Infant Delivery Method: Section Procedures: Procedures Operation Date: 12/13/20 07:45 Actual Procedure Side Surgeon p Section Angelique Meyers MD complications: none Status at Discharge Functional status at discharge: independent ambulation Time Spent with Patient Time attestation: Total time spent providing and/or coordinating discharge services: Exam Const: General: cooperative Orientation/consciousness: oriented to person, oriented to place and oriented to time HENMT: General nose exam: Normal external nose present Eyes: General: appearance normal, both eyes and all related structures Resp: Effort & Inspection: normal respiratory effort GI: Inspection: normal to inspection Skin: General skin exam: normal color Neuro: General: oriented to person, oriented to place and oriented to time Extrem: General: normal to inspection and no calf tenderness Psych: Appearance: grossly normal Mental Status: mental status grossly normal DS: Data Data Completed and Pending Completed studies during hospitalization: Pending at discharge 12/13/20 08:38 Surgical [PTH] Routine Discharge Plan Discharge Attending physician on discharge: Angelique Meyers Consulting providers: Cantor,Marcellus S. Discharging Clinician: Nick Mathews Patient Disposition: Home, Self-Care Activity: may shower, may drive after 2 weeks and pelvic rest Diet: low sodium Discharge Instructions: Education: Mom and Baby Guide Given to: Mother Follow-Up: Call your delivering provider's office for an appointment to be seen in: 1 Week Mom and baby should come to the [facility] for the follow-up appointment. Appointment Date/Time: December 18, 2020 at 9:00 am What to expect at your follow-up visit: Blood Pressure Check Call [phone] if you are unable to keep your appointment time. BREAST CARE: * Wear a snug supportive bra. * For engorgement discomfort: Bottle Feeding: * May apply ice packs ABDOMINAL INCISION: (if applicable) * Allow incision to air dry * Do NOT use lotions for powders on your incision * When showering, allow soap and water to run over the incision, but do not wash incision PERINEAL CARE: * Until bleeding stops, use your sonia bottle after urinating * Change your pad frequently throughout the day * No tub baths until seen by your physician - You may shower ACTIVITY: * Rest as much as possible. * Do not exercise or lift anything heavier than your baby (such as laundry
== END 2020-12-15 16:20 | disposition home or self-care (01) | DRG 787 ==
LOC: ANHOB2 12-15 09:35 → ANHLDR 12-17 10:57 → ANHOB2 12-17 10:57
PROVIDERS: Admitting Provider Obstetrics & Gynecology; Visit Provider Obstetrics & Gynecology
PROC: 10D00Z1 Extraction of Products of Conception, Low, Open Approach (ICD-10-PCS; CPT 59514; principal; 2020-12-13 07:45)
DX: O34.211 Maternal care for low transverse scar from previous cesarean delivery (principal); O10.92 Unspecified pre-existing hypertension complicating childbirth; Z37.0 Single live birth; Z3A.38 38 weeks gestation of pregnancy; O36.5930 Maternal care for other known or suspected poor fetal growth, third trimester, not applicable or unspecified; O99.214 Obesity complicating childbirth; E66.9 Obesity, unspecified
CPT/HCPCS: 36415; 80053; 81001; 82570; 84156; 84550; 85025; 85027; 86592; 86850; 86900; 86901; 88307; A9270; J0131; J1200; J1885; J2274; J2370; J2590; J7120

== ENCOUNTER 2020-12-16 12:10 | Inpatient (IN) | payer OTHER, SELFPAY ==
[2020-12-16] VITALS (32 sets, daily range): BP systolic 121–172; BP diastolic 73–104; PULSE 91–125; RESP 18
[2020-12-16 12:45] LABS: Basophils Percent Auto 0.2 % (0.2-1.2); Eosinophils Absolute Auto 0.3 K/mm3 (0-0.3); Eosinophils Percent Auto 2.4 % (0-4.4); Hematocrit 33.6 % (37.0-47.0); Immature Granulocyte Absolute 0.05 K/mm3 (0.00-0.031); Immature Granulocyte Percent A 0.5 % (0-0.5); Lymphocytes Absolute Auto 2.93 K/mm3 (0.9-3.2); Lymphocytes Percent Auto 26.8 % (18.3-44.2); Mean Corpuscular HGB Conc 32.7 g/dl (32-36); Mean Corpuscular Hemoglobin 28.7 pg (26-34); Mean Corpuscular Volume 87.7 fl (80-100); Mean Platelet Volume 12.4 fl (7.4-10.4); Monocytes Absolute Auto 0.6 K/mm3 (0.1-0.6); Monocytes Percent Auto 5.5 % (2.6-8.5); Neutrophils Absolute Auto 7.1 K/mm3 (1.3-6.7); Neutrophils Percent Auto 64.6 % (45.5-73.1); Platelet Count Result 225 k/mm3 (150-375); Red Blood Count 3.83 M/mm3 (4.2-5.4); Red Cell Distribution Width 18.6 % (11.5-14.5); White Blood Count 10.9 K/mm3 (4.5-10.0)
[2020-12-16 12:52] LABS: Add Urine Microscopic? YES; Appearance Urine Clear (Clear); Bacteria Urine Trace /hpf; Bilirubin Urine Negative (Negative); Blood Urine 3+ (Negative); Color Urine Yellow (Yellow); Glucose Urine UA Negative (Negative); Ketones Urine 1+ mg/dL (Negative); Leukocyte Esterase Ur Trace LEU/UL (NEGATIVE); Mucus Urine Rare /lpf; Nitrate Urine Negative (Negative); Protein Urine 1+ mg/dL (Negative); RBC Urine 51-75 /hpf (0-2); Specific Grav Ur 1.011 (1.001-1.035); Squamous Epithelial Cell Urine Many /hpf (Few); Urobilinogen Urine Negative mg/dL (<2.0)
[2020-12-16 12:54] LABS: Creatinine Urine 72.1 mg/dL; Total Protein Urine Random 20 mg/dL; Ur Ttl Prot Creatinine Ratio 0.28 mg/mg (0-0.20)
[2020-12-16 12:56] LABS: Alanine Aminotransferase 18 U/L (4-35); Albumin Level 3.4 g/dL (3.5-5.1); Alkaline Phosphatase 467 U/L (38-126); Anion Gap 6 mmol/L (8-16); Aspartate Amino Transferase 36 U/L (14-36); Bilirubin,Total 0.3 mg/dL (0.2-1.3); Blood Urea Nitrogen 8 mg/dL (7-17); Calcium 9.5 mg/dL (8.4-10.2); Carbon Dioxide 28 mmol/L (22-30); Chloride 103 mmol/L (98-107); Estimated Glomerular Filt Rate > 60; Glucose 89 mg/dL (65-110); Potassium 3.6 mmol/L (3.4-5.0); Sodium 137 mmol/L (137-145); Uric Acid 4.2 mg/dL (2.5-7.5)
--- NOTE | 2020-12-16 13:50 | PC.NURSE ---
Dr Meyers notified of elevated BP's and lab results and reflexes. Orders received.
[2020-12-16] MEDS: NIFEdipine 30 MG TAB.ER.24 PO ×2 (14:18→15:58)
[2020-12-16] MEDS: LACTATED RINGERS 1,000 ML 75 ML IV CONT (14:22)
[2020-12-16] MEDS: MAGNESIUM SULF 4 GM/WATER100ML 4 GM/100 ML BAG IVPB (14:23)
[2020-12-16] MEDS: MAGNESIUM SULF 20GM/WATER500ML 500 ML 50 MG IV CONT (15:00)
--- NOTE | 2020-12-16 15:35 | PC.NURSE ---
Dr Meyers here to see patient. Plan of care discussed and BP's reviewed. Order for 2nd dose of procardia 30xl.
--- NOTE | 2020-12-16 15:37 | PM.IMHP ---
H&P: HPI History of Present Illness Date/Time: 12/16/20 15:37 postop day #3 s/p repeat C/S came in for BP check due to chronic HTN and had severely elevated BP today. She denies SHAY, visual changes, RUQ pain. Incisional pain controlled with norco and ibuprofen. Lochia similar to light period. No urinary or bweol complaints. Baby is doing well bottle feeding. Chief Complaint: preeclampsia Review of Systems Review of Systems: All systems reviewed & are unremarkable except as noted in HPI and below PMFSH Past Medical History Medical History Encounter for anatomic survey Missed x1 Obesity Surgical History Surgical History H/O laparoscopy History of dilation and curettage 2020 Previous section x1 Family History Family History Sibling Hypertension Father Type 2 diabetes mellitus Social History Social History Smoking status: Never smoker Second hand tobacco smoke exposure: No Alcohol intake: never Substance use: never Gender identity (if verbalized by the patient): Female Spiritual care concerns: No Meds Home Medications and Allergies Home Medications Medication Instructions Recorded Confirmed Type docusate sodium 100 mg PO BID cap 12/15/20 12/16/20 Rx hydrocodone-acetaminophen 1 tablet PO Q3H PRN #30 tablet 12/15/20 12/16/20 Rx ibuprofen 600 mg PO Q6H PRN tablet 12/15/20 12/16/20 Rx Allergies Allergy/AdvReac Type Severity Reaction Status Date / Time No Known Allergies Allergy Verified 12/06/20 09:53 Vital Signs Vital Signs - 24 hr 12/16/20 13:30 12/16/20 13:43 12/16/20 14:15 Pulse Rate 112 H 107 H 96 Respiratory Rate Blood Pressure 165/99 H 145/94 H Blood Pressure [Right Arm] 165/99 H 12/16/20 14:31 12/16/20 14:45 12/16/20 15:00 Pulse Rate 106 H 98 98 Respiratory Rate Blood Pressure 167/98 H 141/95 H 157/94 H Blood Pressure [Right Arm] 12/16/20 15:01 12/16/20 15:15 12/16/20 15:31 Pulse Rate 95 101 H Respiratory Rate 18 Blood Pressure 154/104 H 169/100 H Blood Pressure [Right Arm] Exam Const: General: healthy appearing, no acute distress, alert and awake Resp: Auscultation: clear to auscultation bilaterally Cardio: Rate: regular rate Rhythm: regular rhythm GI: Inspection: non-distended and incision (intact without erythema, drainage, or induration) GI Palp: Yes Soft to palpation and No Tenderness to palpation present (GI) Extrem: General: no calf tenderness and edema (trace bilateral ankles) Psych: Mental Status: mental status grossly normal H&P: Results Labs Labs: Short CBC 12/16/20 Range/Units 12:35 WBC 10.9 H (4.5-10.0) K/mm3 Hgb 11.0 L (12.0-15.0) g/dL Hct 33.6 L (37.0-47.0) % Plt Count 225 (150-375) k/mm3 BMP 12/16/20 12:35 Sodium 137 Potassium 3.6 Chloride 103 Carbon Dioxide 28 BUN 8 Creatinine 0.80 Glucose 89 Calcium 9.5 Liver Function 12/16/20 Range/Units 12:35 Total Bilirubin 0.3 (0.2-1.3) mg/dL AST 36 (14-36) U/L ALT 18 (4-35) U/L Alkaline Phosphatase 467 H (38-126) U/L Albumin 3.4 L (3.5-5.1) g/dL Urine 12/16/20 Range/Units 12:35 Urine Color Yellow (Yellow) Urine Appearance Clear (Clear) Urine pH 6.0 (5.0-9.0) Ur Specific [place] 1.011 (1.001-1.035) Urine Protein 1+ H (Negative) mg/dL Urine Glucose (UA) Negative (Negative) mg/dL Assessment and Plan Assessment and plan (1) Pre-eclampsia superimposed on chronic hypertension, : Code(s): O11.5 - Pre-existing hypertension with pre-eclampsia, complicating the puerperium; O10.93 - Unspecified pre-existing hypertension complicating the puerperium Status: Acute Assessment and
--- NOTE | 2020-12-16 17:09 | PC.NURSE ---
Dr Meyers notified of cont elevated BP's. Order for HTN protocol.
[2020-12-16] MEDS: LABETALOL HCL INJ 100 MG/20 ML VIAL 20 MG IV PUSH ×2 (17:25→22:38)
[2020-12-16] MEDS: HYDROcodone/acetaminophen (*CRX) 5-325 MG TABLET 1 TAB PO ×2 (17:35→21:36)
[2020-12-16 21:34] LABS: Magnesium 4.7 mg/dL (1.6-2.3)
[2020-12-16] MEDS: IBUPROFEN 600 MG TABLET PO (22:36)
[2020-12-17] VITALS (32 sets, daily range): BP systolic 123–168; BP diastolic 70–97; PULSE 97–141; RESP 12–18; TEMP 35.9–38.4
[2020-12-17] MEDS: HYDROcodone/acetaminophen (*CRX) 5-325 MG TABLET 1 TAB PO ×5 (01:58→23:50)
[2020-12-17] MEDS: LACTATED RINGERS 1,000 ML 75 ML IV CONT (02:08)
[2020-12-17] MEDS: MAGNESIUM SULF 20GM/WATER500ML 500 ML 50 MG IV CONT (02:08)
[2020-12-17] MEDS: IBUPROFEN 600 MG TABLET PO ×3 (05:16→23:52)
[2020-12-17 05:35] LABS: Magnesium 5.3 mg/dL (1.6-2.3)
--- NOTE | 2020-12-17 08:48 | PM.OBPNVD ---
OB - PN: Subj Subjective Date/time seen: 12/17/20 08:48 Patient comments: no complaints, pain well controlled, tolerating diet, flatus present and other (Ambulating and voiding without problems. Lochia similar to menses) baby status: doing well Narrative: No SHAY, visual changes, RUQ pain. Postop pain well controlled. She has mild queasiness but no SOB, chest pain, emesis. Voiding well OB - PN: Obj Data Labs CBC & Chem 7: 12/16/20 12:35 12/16/20 12:35 Labs: Laboratory Results - last 24 hr 12/16/20 12/16/20 12/16/20 12:35 12:35 12:35 WBC 10.9 H RBC 3.83 L Hgb 11.0 L Hct 33.6 L MCV 87.7 MCH 28.7 MCHC 32.7 RDW 18.6 H Plt Count 225 MPV 12.4 H Immature Gran % (Auto) 0.5 Neut % (Auto) 64.6 Lymph % (Auto) 26.8 [place] % (Auto) 5.5 Eos % (Auto) 2.4 Baso % (Auto) 0.2 Lymph # (Auto) 2.93 [place] # (Auto) 0.6 Eos # (Auto) 0.3 Baso # (Auto) 0.0 Abs Immat Gran (auto) 0.05 H Absolute Neuts (auto) 7.1 H Absolute Nucleated RBC 0.0 Nucleated RBC % 0.0 Sodium Potassium Chloride Carbon Dioxide Anion Gap BUN Creatinine Estim Creat Clear Calc Estimated GFR Glucose Uric Acid Calcium Magnesium Total Bilirubin AST ALT Alkaline Phosphatase Total Protein Albumin Urine Color Yellow Urine Appearance Clear Urine pH 6.0 Ur Specific [place] 1.011 Urine Protein 1+ H Urine Glucose (UA) Negative Urine Ketones 1+ H Ur Blood (Man) 3+ H Urine Nitrate Negative Urine Bilirubin Negative Urine Urobilinogen Negative Ur Leukocyte Esterase Trace H Urine RBC 51-75 H Urine WBC 10-15 H Ur Squamous Epith Cells Many H Urine Bacteria Trace Urine Mucus Rare U Random Total Protein 20 Urine Creatinine 72.1 Protein/Creat Ratio 2 0.28 H 12/16/20 12/16/20 12/17/20 12:35 21:12 05:10 WBC RBC Hgb Hct MCV MCH MCHC RDW Plt Count MPV Immature Gran % (Auto) Neut % (Auto) Lymph % (Auto) [place] % (Auto) Eos % (Auto) Baso % (Auto) Lymph # (Auto) [place] # (Auto) Eos # (Auto) Baso # (Auto) Abs Immat Gran (auto) Absolute Neuts (auto) Absolute Nucleated RBC Nucleated RBC % Sodium 137 Potassium 3.6 Chloride 103 Carbon Dioxide 28 Anion Gap 6 L BUN 8 Creatinine 0.80 Estim Creat Clear Calc Not Reportable Estimated GFR > 60 Glucose 89 Uric Acid 4.2 Calcium 9.5 Magnesium 4.7 H 5.3 H Total Bilirubin 0.3 AST 36 ALT 18 Alkaline Phosphatase 467 H Total Protein 7.0 Albumin 3.4 L Urine Color Urine Appearance Urine pH Ur Specific [place] Urine Protein Urine Glucose (UA) Urine Ketones Ur Blood (Man) Urine Nitrate Urine Bilirubin Urine Urobilinogen Ur Leukocyte Esterase Urine RBC Urine WBC Ur Squamous Epith Cells Urine Bacteria Urine Mucus U Random Total Protein Urine Creatinine Protein/Creat Ratio 2 OB - PN A/P Assessment and Plan (1) Pre-eclampsia superimposed on chronic hypertension, : Code(s): O11.5 - Pre-existing hypertension with pre-eclampsia, complicating the puerperium; O10.93 - Unspecified pre-existing hypertension complicating the puerperium Status: Acute Assessment and Plan: BP now mildly elevated, s/p 60 mg XL po procardia yesterday and two doses IV labetalol in evening yesterday. Asymptomatic. Continue procardia 60 mg XL daily. Continue magnesium for 24 hours (until early this afternoon) and observe BP/symptoms. Consider discharge later today depending on BP and clinical status Plan day: 4 (s/p C section, doing well) Plan: routine care Time Spent With Patient Time: Total time spent is greater than 50% in coordination of care (as documented) at patient's fl
[2020-12-17] MEDS: NIFEdipine 30 MG TAB.ER.24 60 MG PO (08:55)
--- NOTE | 2020-12-17 14:07 | PC.NURSE ---
1333- called,read bp's for the day and informed magnesium sulfate is due to be turned off at 1350. Order receive to continue to discontinue and monitor bp's frequently for the next couple hours. Call if greater then 160/100
--- NOTE | 2020-12-17 14:14 | PC.NURSE ---
1350--Magnesium sulfate DC'd at this time, and IV to saline lock.
--- NOTE | 2020-12-17 14:36 | PC.NURSE ---
Breast feeding note; nurse asked to assist mother to try to start breast feeding her baby. Baby born, 12-13-2021, and mother did not nurse infant while in the hospital. FOB brought infant in to be with mother, mother now readmitted because of her BP. Mother's milk is in; breasts very firm and full; mother reports marked tenderness. She was set up with a breast pump earlier today, after Dr. Meyers suggested she breast feed. Mother states she does want to try to breast feed. Mother taught how to gently massage her breasts. Nurse suggested applying warm blankets across her breasts first, then massage and then pumping 10-15 minutes. Suggested pumping one side at a time, and massaging breasts as she pumps. Mother was taught reverse pressure softening technique and milk easily expressed. Nipples more everted after reverse pressure softening done. Attempt to get to breast at 1400. Baby awake, rooting. Mother taught cross-cradle positioning, use of c-hold, and nose to nipple latch on technique. Several attempts required, and baby did latch several times and gave little bursts of suckling, but was unable to latch and maintain for effective breast feeding. After about 10 minutes, fell asleep and quit trying. Mother instructed to pump again, and to pump at each of baby's feedings. Nurse suggested 10 minute attempt to breast feed, then pump and bottle feed, giving pumped breast milk first, then formula, amount infant wants. She is to continue the heat and massage prior to feedings. Also suggested she could do a warm shower with hand massage. Nurse encouraged mother to call for nurse assistance with breast feeding at each feeding while she is in the hospital. Also, encouraged her to contact the departmental [employer] to schedule a f/u out-patient visit later this week. Pt and FOB attentive and voiced understanding of information shared.
--- NOTE | 2020-12-17 16:08 | ECG_ITS ---
Measurements Intervals [place] Rate: 135 P: 44 TX: 144 QRS: 69 QRSD: 82 T: 0 QT: 331 QTc: 497 Interpretive Statements SINUS TACHYCARDIA BORDERLINE ST-T WAVE ABNORMALITY- ANTEROLAT/INF LEADS BASELINE WANDER- V2 ABNORMAL ECG Electronically Signed On 12-17-2020 16:42:48 CDT by Hero Nava D.O.
[2020-12-17 16:44] LABS: Hematocrit 35.2 % (37.0-47.0); Hemoglobin 11.6 g/dL (12.0-15.0); Mean Corpuscular Hemoglobin 28.4 pg (26-34); Mean Corpuscular Volume 86.1 fl (80-100); Platelet Count Result 281 k/mm3 (150-375); Red Blood Count 4.09 M/mm3 (4.2-5.4); Red Cell Distribution Width 18.4 % (11.5-14.5); White Blood Count 11.4 K/mm3 (4.5-10.0)
[2020-12-17 17:01] LABS: Band Neutrophils Percent 1 % (0-6); Eosinophils Absolute Manual 0.22 K/mm3 (0.02-0.5); Eosinophils Percent Manual 2 % (0-4); Lymphocytes Absolute Manual 1.82 K/mm3 (1.1-4.5); Lymphocytes Percent Manual 16 % (18-44); Monocytes Absolute Manual 0.22 K/mm3 (0.1-0.90); Monocytes Percent Manual 2 % (3-9); Neutrophils Absolute Manual 9.12 K/mm3 (1.7-7.2); Neutrophils Percent Manual 79 % (46-73); Platelet Estimate Adequate (Adequate); Total Cells Counted 100
[2020-12-17 17:07] LABS: Alanine Aminotransferase 24 U/L (4-35); Albumin Level 3.7 g/dL (3.5-5.1); Alkaline Phosphatase 520 U/L (38-126); Anion Gap 8 mmol/L (8-16); Aspartate Amino Transferase 48 U/L (14-36); Bilirubin,Total 0.5 mg/dL (0.2-1.3); Blood Urea Nitrogen 5 mg/dL (7-17); Calcium 8.5 mg/dL (8.4-10.2); Carbon Dioxide 27 mmol/L (22-30); Chloride 101 mmol/L (98-107); Estimated Glomerular Filt Rate > 60; Glucose 121 mg/dL (65-110); Magnesium 3.6 mg/dL (1.6-2.3); Potassium 3.5 mmol/L (3.4-5.0); Sodium 136 mmol/L (137-145); Uric Acid 4.9 mg/dL (2.5-7.5)
[2020-12-18] VITALS (9 sets, daily range): BP systolic 135–156; BP diastolic 82–91; PULSE 94–138; RESP 16–20; TEMP 36.6–36.9
--- NOTE | 2020-12-18 | ECHO_ITS ---
Patient Info Name: Marbella Michael Age: 30 years : 1990 Gender: Female Ht: 60 in Wt: 201 lbs BSA: 2.02 m2 HR: 122 bpm BP: 150 / 82 mmHg Heart Rhythm: Sinus Rhythm Technical Quality: Good Exam Date: 12/18/2020 12:11 PM Exam Location: [facility] Patient Status: Inpatient Admit Date: 12/17/2020 Staff Ordering Physician: Robert Pinto MD Compliance Reviewer: Antelmo Carrillo, BEATRIZ, RT Attending Provider: Nick Mathews MD Referring Physician: Blair BOSS; Exam Type: CA echo doppler color flow Study Info Indications R00.0 - Tachycardia, unspecified Complete two-dimensional, color flow and Doppler transthoracic echocardiogram is performed. Strain analysis performed. Summary 1. Left ventricular chamber dimension is normal. 2. Left ventricular systolic function is hyperdynamic, estimated at >70%. 3. There is no increased left ventricular wall thickness. 4. The left ventricular diastolic function is normal. 5. Global longitudinal strain is abnormal at -15 %. 6. There is mild pulmonic regurgitation. 7. Complete two-dimensional, color flow and Doppler transthoracic echocardiogram is performed. 8. Strain analysis performed. Left Ventricle Left ventricular chamber dimension is normal. Left ventricular systolic function is hyperdynamic, estimated at >70%. There is no increased left ventricular wall thickness. The left ventricular diastolic function is normal. Global longitudinal strain is abnormal at -15 %. Right Ventricle Right ventricular chamber dimension is normal. Right ventricular systolic function is normal. Left Atria Left atrial chamber dimension is normal. Right Atria Right atrial chamber dimension is normal. Atrial Septum Intact interatrial septum visualized by color flow imaging. Aortic Valve The aortic valve is trileaflet. There is no aortic valve sclerosis. There is no aortic valve stenosis. There is trace aortic valve regurgitation. Pulmonic Valve The pulmonic valve is normal. There is no pulmonic valve stenosis. There is mild pulmonic regurgitation. Mitral Valve The mitral valve has normal leaflets. There is no mitral valve stenosis. There is trace mitral valve regurgitation. Tricuspid Valve The tricuspid valve leaflets are normal. There is no significant tricuspid valve stenosis. There is trace tricuspid valve regurgitation. Pericardium/Pleural The pericardium appears normal. There is no pericardial effusion. Inferior Vena Cava Normal inferior vena cava with <50% collapse upon inspiration consistent with elevated right atrial pressure, 10 mmHg. Aorta The aortic root size at the sinus of Valsalva is normal. The prox ascending aorta size is normal. Left Ventricular Outflow Tract Name Value Normal LVOT 2D LVOT Diameter 2.0 cm LVOT Doppler LVOT Peak Gradient 5 mmHg LVOT Mean Gradient 3 mmHg LVOT VTI 18 cm LVOT VTI/AV VTI Ratio 0.9 LVOT Stroke Volume 60 ml LVO
[2020-12-18] MEDS: HYDROcodone/acetaminophen (*CRX) 5-325 MG TABLET 1 TAB PO ×3 (04:00→12:00)
[2020-12-18] MEDS: IBUPROFEN 600 MG TABLET PO ×2 (05:54→13:59)
--- NOTE | 2020-12-18 07:59 | PM.OBPNVD ---
OB - PN: Subj Subjective Date/time seen: 12/18/20 07:59 Patient comments: pain well controlled, tolerating diet, flatus present and other (Ambulating and voiding without problems. Lochia similar to menses) Reserve baby status: doing well Narrative: She was kept overnight again due to tachycardia and fever. She feels like her heart races at times, even just when lying in bed. No palpitations, chest pain, shortness of breath, dizziness, visual changes, SHAY, weakness. Mild pain at incision, controlled with pain medication. No pain in legs or increased swelling. No pain or redness in breasts. No cough, congestion, dysuria, frequency OB - PN: Obj Data Labs CBC & Chem 7: 12/17/20 16:25 12/17/20 16:25 Labs: Laboratory Results - last 24 hr 12/17/20 12/17/20 12/17/20 16:25 16:25 16:25 WBC Cancelled 11.4 H RBC Cancelled 4.09 L Hgb Cancelled 11.6 L Hct Cancelled 35.2 L MCV Cancelled 86.1 MCH Cancelled 28.4 MCHC Cancelled 33.0 RDW Cancelled 18.4 H Plt Count Cancelled 281 MPV Cancelled 12.0 H Immature Gran % (Auto) Cancelled Not Reportable Neut % (Auto) Cancelled Not Reportable Lymph % (Auto) Cancelled Not Reportable [place] % (Auto) Cancelled Not Reportable Eos % (Auto) Cancelled Not Reportable Baso % (Auto) Cancelled Not Reportable Lymph # (Auto) Cancelled Not Reportable [place] # (Auto) Cancelled Not Reportable Eos # (Auto) Cancelled Not Reportable Baso # (Auto) Cancelled Not Reportable Abs Immat Gran (auto) Cancelled Not Reportable Absolute Neuts (auto) Cancelled Not Reportable Absolute Nucleated RBC Cancelled Not Reportable Total Counted 100 Neutrophils % (Manual) 79 H Band Neutrophils % 1 Lymphocytes % (Manual) 16 L Monocytes % (Manual) 2 L Eosinophils % (Manual) 2 Nucleated RBC % Cancelled Not Reportable Abs Neuts (Manual) 9.12 H Abs Lymphs (Manual) 1.82 Abs Monocytes (Manual) 0.22 Absolute Eos (Manual) 0.22 Platelet Estimate Adequate % Immature Plt Fraction Cancelled Sodium 136 L Potassium 3.5 Chloride 101 Carbon Dioxide 27 Anion Gap 8 BUN 5 L Creatinine 0.60 L Estim Creat Clear Calc Not Reportable Estimated GFR > 60 Glucose 121 H Uric Acid 4.9 Calcium 8.5 Magnesium 3.6 H Total Bilirubin 0.5 AST 48 H ALT 24 Alkaline Phosphatase 520 H Total Protein 7.0 Albumin 3.7 12/17/20 16:25 WBC RBC Hgb Hct MCV MCH MCHC RDW Plt Count MPV Immature Gran % (Auto) Neut % (Auto) Lymph % (Auto) [place] % (Auto) Eos % (Auto) Baso % (Auto) Lymph # (Auto) [place] # (Auto) Eos # (Auto) Baso # (Auto) Abs Immat Gran (auto) Absolute Neuts (auto) Absolute Nucleated RBC Total Counted Neutrophils % (Manual) Band Neutrophils % Lymphocytes % (Manual) Monocytes % (Manual) Eosinophils % (Manual) Nucleated RBC % Abs Neuts (Manual) Abs Lymphs (Manual) Abs Monocytes (Manual) Absolute Eos (Manual) Platelet Estimate % Immature Plt Fraction Sodium Cancelled Potassium Cancelled Chloride Cancelled Carbon Dioxide Cancelled Anion Gap Cancelled BUN Cancelled Creatinine Cancelled Estim Creat Clear Calc Cancelled Estimated GFR Cancelled Glucose Cancelled Uric Acid Calcium Cancelled Magnesium Cancelled Total Bilirubin Cancelled AST Cancelled ALT Cancelled Alkaline Phosphatase Cancelled Total Protein Cancelled Albumin Cancelled OB - PN A/P Assessment and Plan (1) Pre-eclampsia superimposed on chronic hypertension, : Code(s): O11.5 - Pre-existing hypertension with pre-eclampsia, complicating the puerperium; O10.93 - Unspecified pre-existing hypertension complicating the puerperium Status: Acute Assessment and Plan: BP normal to mildly elevated on procardia 60 XL daily so continue that for now. Labs normal other than mildly elevated AST and elevated alk phos
[2020-12-18] MEDS: NIFEdipine 30 MG TAB.ER.24 60 MG PO (08:00)
--- NOTE | 2020-12-18 10:57 | PM.CNCAR ---
Assessment and Plan Assessment and plan (1) Tachycardia: Code(s): R00.0 - Tachycardia, unspecified Status: Acute Assessment and Plan: Her tachycardia is sinus tachycardia. It is typically a reactionary to a secondary process such as possible underlying anemia, infection, dehydration etc.. Will check a 2D echocardiogram with Doppler to make sure there is no significant pericardial effusion or other significant/obvious cardiac pathology which is unlikely. Will defer other treatment for anemia/? Infection given her elevated temperature yesterday to her OBGYN Will check a TSH and T4 level (2) Pre-eclampsia superimposed on chronic hypertension, : Code(s): O11.5 - Pre-existing hypertension with pre-eclampsia, complicating the puerperium; O10.93 - Unspecified pre-existing hypertension complicating the puerperium Status: Acute Assessment and Plan: On Procardia a blood pressure still elevated. Hopefully will gradually normalize (3) Hypokalemia: Code(s): E87.6 - Hypokalemia Status: Acute Assessment and Plan: Mildly low potassium. Will replace with 40 mEq p.o. x1. History of Present Illness History of Present Illness Consult date/time: 12/18/20 10:57 Requesting physician: Angelique Meyers MD Consult reason: Other (Tachycardia, abnormal EKG) Reason For Visit: High BP Narrative: Date of service 12/18/2020 Ordering provider: Dr. meyers Reason for consultation, abnormal EKG, tachycardia History: Patient is 30-year-old female who underwent a several days ago. This was her 2nd child. She did have some elevated blood pressure also with the 1st and she has had some elevated blood pressure this time as well. She has been started on Procardia. She does not feel her elevated heart rate or palpitations. She did have a fever yesterday. She has had intermittent tachycardia since 12/13/2020. She denies any chest pain, shortness of breath, syncope, presyncope, paroxysmal nocturnal dyspnea, orthopnea, edema or palpitations. Review of Systems Review of Systems: All systems reviewed & are unremarkable except as noted in HPI and below Constitutional: Constitutional: Denies weakness Eyes: Eyes: Denies blurry vision ENT: Reports Normal hearing present Cardiovascular: Cardiovascular: Denies chest pain Respiratory: Respiratory: Denies dyspnea Gastrointestinal: Gastrointestinal: Denies abdominal pain Genitourinary: Genitourinary: Denies flank pain Musculoskeletal: Musculoskeletal: Denies back pain Integumentary/Breasts: Skin/Breast: Denies dry skin Neurologic: Denies headache(s) Psychiatric: Psychiatric: Denies anxiety Endocrine: Endocrine: Denies fatigue Hematologic/Lymphatic: Hematologic/Lymphatic: Denies easy bleeding Allergic/Immunologic: Allergic/Immunologic: Denies GI upset with certain foods PMFSH Past Medical History Medical History Encounter for anatomic survey Missed x1 Obesity Surgical History Surgical History H/O laparoscopy History of dilation and curettage 2020 Previous section x1 Family History Family History Sibling Hypertension Father Type 2 diabetes mellitus Social History Social History Smoking status: Never smoker Second hand tobacco smoke exposure: No Alcohol intake: never Substance use: never Gender identity (if verbalized by the patient): Female Spiritual care concerns: No Meds Home Medications and Allergies Home Medications Medication Instructions Recorded Confirmed Type docusate sodium 100 mg PO BID cap 12/15/20 12/16/20 Rx hydrocodone-acetaminophen 1 tablet PO Q3H PRN #30 tablet 12/15/20 12/16/20 Rx ibuprofen 600 mg PO
[2020-12-18] MEDS: POTASSIUM CHLORIDE 20 MEQ TABLET 40 MEQ PO (11:24)
--- NOTE | 2020-12-18 15:28 | PM.OBDSVD ---
DS: Admitting Diagnosis Discharge Date 12/18/2020 Admitting Diagnosis preeclampsia superimposed on chronic HTN DS: Discharge Diagnosis Discharge Diagnosis (1) Pre-eclampsia superimposed on chronic hypertension, : Code(s): O11.5 - Pre-existing hypertension with pre-eclampsia, complicating the puerperium; O10.93 - Unspecified pre-existing hypertension complicating the puerperium Status: Acute (2) Tachycardia: Code(s): R00.0 - Tachycardia, unspecified Status: Acute (3) History of delivery: Code(s): Z98.891 - History of uterine scar from previous surgery Status: Acute OB - DS: Summary OB Procedures : PIH Mgmt OB Procedures Intrapartum: OB Procedures: : Other (EKG, echocardiogram) Peripartum Data Infant Delivery Method: Section complications: other (superimposed preeclampsia, tachycardia) Status at Discharge Functional status at discharge: independent ambulation Overall status at discharge: patient is progressing back to baseline Time Spent with Patient Time attestation: Total time spent providing and/or coordinating discharge services: Time spent: Less than 30 minutes DS: Data Data Completed and Pending Labs on day of discharge: Labs from last 24 hours 12/18/20 12/17/20 12/17/20 11:32 16:25 16:25 WBC 11.4 H RBC 4.09 L Hgb 11.6 L Hct 35.2 L MCV 86.1 MCH 28.4 MCHC 33.0 RDW 18.4 H Plt Count 281 MPV 12.0 H Immature Gran % (Auto) Not Reportable Neut % (Auto) Not Reportable Lymph % (Auto) Not Reportable [place] % (Auto) Not Reportable Eos % (Auto) Not Reportable Baso % (Auto) Not Reportable Lymph # (Auto) Not Reportable [place] # (Auto) Not Reportable Eos # (Auto) Not Reportable Baso # (Auto) Not Reportable Abs Immat Gran (auto) Not Reportable Absolute Neuts (auto) Not Reportable Absolute Nucleated RBC Not Reportable Total Counted 100 Neutrophils % (Manual) 79 H Band Neutrophils % 1 Lymphocytes % (Manual) 16 L Monocytes % (Manual) 2 L Eosinophils % (Manual) 2 Nucleated RBC % Not Reportable Abs Neuts (Manual) 9.12 H Abs Lymphs (Manual) 1.82 Abs Monocytes (Manual) 0.22 Absolute Eos (Manual) 0.22 Platelet Estimate Adequate % Immature Plt Fraction Sodium Cancelled Potassium Cancelled Chloride Cancelled Carbon Dioxide Cancelled Anion Gap Cancelled BUN Cancelled Creatinine Cancelled Estim Creat Clear Calc Cancelled Estimated GFR Cancelled Glucose Cancelled Uric Acid Calcium Cancelled Magnesium Cancelled Total Bilirubin Cancelled AST Cancelled ALT Cancelled Alkaline Phosphatase Cancelled Total Protein Cancelled Albumin Cancelled TSH 1.020 Thyroxine (T4) Pending 12/17/20 12/17/20 16:25 16:25 WBC Cancelled RBC Cancelled Hgb Cancelled Hct Cancelled MCV Cancelled MCH Cancelled MCHC Cancelled RDW Cancelled Plt Count Cancelled MPV Cancelled Immature Gran % (Auto) Cancelled Neut % (Auto) Cancelled Lymph % (Auto) Cancelled [place] % (Auto) Cancelled Eos % (Auto) Cancelled Baso % (Auto) Cancelled Lymph # (Auto) Cancelled [place] # (Auto) Cancelled Eos # (Auto) Cancelled Baso # (Auto) Cancelled Abs Immat Gran (auto) Cancelled Absolute Neuts (auto) Cancelled Absolute Nucleated RBC Cancelled Total Counted Neutrophils % (Manual) Band Neutrophils % Lymphocytes % (Manual) Monocytes % (Manual) Eosinophils % (Manual) Nucleated RBC % Cancelled Abs Neuts (Manual) Abs Lymphs (Manual) Abs Monocytes (Manual) Absolute Eos (Manual) Platelet Estimate % Immature Plt Fraction Cancelled Sodium 136 L Potassium 3.5 Chloride 101 Carbon Dioxide 27 Anion Gap 8 BUN 5 L Creatinine 0.60 L Estim Creat Clear Calc Not Reportable Estimated GFR > 60 Glucose 121 H Uric Acid
== END 2020-12-18 16:16 | disposition home or self-care (01) | DRG 776 ==
LOC: ANHOBOP 12:16 → ANHOBPP 13:26 → ANHOBOP 14:54 → ANHOBPP 14:54
PROVIDERS: Internal Medicine Cardiovascular Disease; Obstetrics & Gynecology; Student in an Organized Health Care Education/Training Program; Admitting Provider Obstetrics & Gynecology; Visit Provider Obstetrics & Gynecology
DX: O11.5 Pre-existing hypertension with pre-eclampsia, complicating the puerperium (principal); R00.0 Tachycardia, unspecified; O99.285 Endocrine, nutritional and metabolic diseases complicating the puerperium; E87.6 Hypokalemia; O99.43 Diseases of the circulatory system complicating the puerperium
CPT/HCPCS: 36415; 80053; 81001; 82570; 83735; 84156; 84436; 84443; 84550; 85025; 87086; 87088; 93005; 93306; A9270; J3475; J7120

== ENCOUNTER 2021-02-09 15:33 | Emergency (ER) | payer OTHER, SELFPAY ==
[2021-02-09] VITALS (7 sets, daily range): BP systolic 127–132; BP diastolic 75–90; PULSE 67–135; RESP 11–24; TEMP 36.5; O2SAT 100
--- NOTE | ~2021-02-09 | CT_ITS ---
EXAMINATION: CTA chest PE abdomen pel DATE: 02/09/2021 20:50 INDICATION: Positive d-dimer TECHNIQUE: Computed tomography angiography (CTA) of the chest, abdomen and pelvis was performed with 100 mL Omnipaque-350 intravenous contrast timed to evaluate the pulmonary arteries. Coronal maximum i ntensity projection 3D-reconstructions were created by the technologist. Automated exposure control a nd iterative reconstruction technique were employed. Exam dose: 1051.32 mGy-cm total exam DLP. COMPARISON: 02/09/2021 PA and lateral chest FINDINGS: The pulmonary arteries are moderately enhanced without apparent pulmonary embolism. No thoracic aortic aneurysm or dissection. Normal heart size. No pericardial or pleural effusion. No hilar or mediastinal mass lesion or lymphadenopathy. No pulmonary infiltrate or consolidation or pulmonary mass lesion. There are small stones layering in the dependent aspect of the gallbladder consistent with cholelithi asis. No gallbladder wall thickening or pericholecystic fluid or fat stranding. No bile duct or pancr eatic duct dilatation. The liver, spleen, pancreas, and adrenal glands and kidneys are unremarkable. No urinary tract calculus or hydroureteronephrosis is detected. Normal caliber of the abdominal aorta. No intraperitoneal or retroperitoneal or pelvic mass lesion or adenopathy or ascites. 2.4 cm left ovarian cyst. The uterus and adnexal areas are otherwise unremarkable. The urinary bladde r appears normal. No evidence of appendicitis. No bowel obstruction is detected. No intraperitoneal free air. Small fat-containing umbilical hernia. No suspicious osteolytic or osteoblastic lesions are noted. IMPRESSION: No apparent pulmonary embolism Cholelithiasis 2.47 or left ovarian cyst Reviewed, dictated and finalized at [facility]. Reviewed, dictated and finalized at location [facility]. SE PROCESSOR
--- NOTE | ~2021-02-09 | XR_ITS ---
XR chest 2V DATE: 02/09/2021 19:31 INDICATION: Shortness of breath, dizziness, tachycardia TECHNIQUE: PA and lateral views COMPARISON: None FINDINGS: Normal heart size. No hilar or mediastinal enlargement. No pulmonary infiltrate or consolid ation, pleural effusion or pulmonary vascular congestion or pneumothorax. IMPRESSION: No active cardiopulmonary disease Reviewed, dictated and finalized at location [facility]. 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
--- NOTE | 2021-02-09 15:52 | ECG_ITS ---
Measurements Intervals [place] Rate: 131 P: 59 AR: 154 QRS: 69 QRSD: 85 T: 28 QT: 375 QTc: 554 Interpretive Statements SINUS TACHYCARDIA ST-T WAVE ABNORMALITY IN ANTEROLAT/INF LEADS- CONSIDER ISCHEMIA ABNORMAL ECG Electronically Signed On 02-10-2021 9:04:41 ACTIVITIES DIRECTOR by Hero Nava D.O.
[2021-02-09 16:10] LABS: Basophils Percent Auto 0.1 % (0.2-1.2); Eosinophils Absolute Auto 0.1 K/mm3 (0-0.3); Eosinophils Percent Auto 0.7 % (0-4.4); Hematocrit 42.2 % (37.0-47.0); Hemoglobin 14.3 g/dL (12.0-15.0); Immature Granulocyte Absolute 0.01 K/mm3 (0.00-0.031); Immature Granulocyte Percent A 0.1 % (0-0.5); Lymphocytes Percent Auto 57.5 % (18.3-44.2); Mean Corpuscular HGB Conc 33.9 g/dl (32-36); Mean Corpuscular Hemoglobin 28.1 pg (26-34); Mean Corpuscular Volume 83.1 fl (80-100); Mean Platelet Volume 11.3 fl (7.4-10.4); Monocytes Absolute Auto 0.3 K/mm3 (0.1-0.6); Neutrophils Absolute Auto 2.7 K/mm3 (1.3-6.7); Neutrophils Percent Auto 37.6 % (45.5-73.1); Platelet Count Result 242 k/mm3 (150-375); Red Blood Count 5.08 M/mm3 (4.2-5.4); Red Cell Distribution Width 14.5 % (11.5-14.5); White Blood Count 7.3 K/mm3 (4.5-10.0)
[2021-02-09 16:24] LABS: Anion Gap 9 mmol/L (8-16); Blood Urea Nitrogen 7 mg/dL (7-17); Calcium 10.1 mg/dL (8.4-10.2); Carbon Dioxide 24 mmol/L (22-30); Chloride 106 mmol/L (98-107); Estimated CRCL calculation 95 ml/min; Estimated Glomerular Filt Rate > 60; Glucose 104 mg/dL (65-110); Sodium 139 mmol/L (137-145)
[2021-02-09 19:20] LABS: Magnesium 1.7 mg/dL (1.6-2.3)
--- NOTE | 2021-02-09 19:27 | ED.GENADULT ---
HPI - General Adult General Chief complaint: Dizziness Stated complaint: dizzy Time Seen by Provider: 02/09/21 18:44 Source: patient Mode of arrival: ambulatory Limitations: no limitations History of Present Illness HPI narrative: Patient presents for evaluation of rapid heart rate that started around 1430 today. She was on a Zoom call for her [employer] at the time of symptom onset. She had associated shortness of breath, dizziness, and weakness in her BLE. And chest tightness but denied chest pain per se. No cough, nausea, vomiting, urinary symptoms, vaginal bleeding or discharge. She states she has had panic attacks in the past and symptoms consistent with those experienced in the past with panic attacks. She has been under considerable amount of stress. 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 No history of VTE. She does not smoke. She is not on exogenous estrogen. She states her symptoms lasted until she arrived here in the emergency department and then markedly subsided. She currently has a headache that started at the same time of her other symptoms. Pain is in frontal region, throbbing, currently 4/10 in severity and 8/10 in severity at max. Related Data Allergies Allergy/AdvReac Type Severity Reaction Status Date / Time No Known Allergies Allergy Verified 01/27/21 10:46 Review of Systems Review of Systems: CONSTITUTIONAL: Denies fever, chills, or sweats. EYES: Denies visual changes, redness, or discharge. ENT: Denies rhinorrhea, congestion, sore throat, or otalgia. CARDIOVASCULAR: Reports chest tightness earlier, now resolved. Denies chest pain, palpitations, or edema. RESPIRATORY: Reports SOB earlier, now resolved. Denies cough GASTROINTESTINAL: Denies abdominal pain, nausea, vomiting, or diarrhea. GENITOURINARY: Denies dysuria or hematuria. SKIN: Denies rash or itching. MUSCULOSKELETAL: Denies back pain, joint pain, or myalgia. NEUROLOGIC: Reports headache at present time. Reports dizziness and weakness earlier, now resolved. PSYCHIATRIC: Reports anxiety. Denies depression. [facility] Past Medical History Medical History Encounter for anatomic survey Missed x1 Obesity Panic attack Surgical History Surgical History H/O laparoscopy History of dilation and curettage 2020 Previous section x2 Family History Family History Sibling Hypertension Father Type 2 diabetes mellitus Social History Social History Smoking status: Never smoker Second hand tobacco smoke exposure: No Alcohol intake: never Substance use: never Gender identity (if verbalized by the patient): Female Spiritual care concerns: No Exam Narrative: GENERAL: Well-appearing, well-nourished, and in no acute distress. HEAD: Normocephalic, atraumatic. EYES: PERRLA and EOMI. ENT: Nares clear, no rhinorrhea or epistaxis. Mucous membranes moist. Oropharynx without tonsillar hypertrophy exudate or other lesions. Bilateral TMs pearly mckenzie nonbulging NECK: Supple. No adenopathy or masses. No carotid bruits or JVD CHEST: Clear to auscultation. No respiratory distress. No wheezes rales or rhonchi HEART: Regular rate and rhythm. No murmur heard. Normal peripheral pulses. ABDOMEN: Soft, nontender, nondistended, normal active bowel sounds. EXTREMITIES: Normal range of motion. No edema. SKIN: Warm, dry, no rash. NEURO: No focal deficits. Alert and oriented x3. PSYCH: Normal mood and affect. Course Course Emergency Course: This is a 30-year-old female who presented with complaints of racing heart rate with dizziness, weakness and headache. Upon arrival here in emergency department, kathy
[2021-02-09] MEDS: POTASSIUM CHLORIDE 20 MEQ PACKET (FOR LIQUID) 40 MEQ PO (19:49)
[2021-02-09 19:55] LABS: Alanine Aminotransferase 84 U/L (4-35); Albumin Level 4.8 g/dL (3.5-5.1); Alkaline Phosphatase 105 U/L (38-126); Aspartate Amino Transferase 57 U/L (14-36); Bilirubin,Total 0.4 mg/dL (0.2-1.3)
[2021-02-09 20:07] LABS: Prothrombin Time 13.2 Seconds (11.1-14.7)
[2021-02-09 20:08] LABS: Troponin I < 0.012 ng/mL (0.000-0.034)
[2021-02-09 20:08] LABS: Partial Thromboplastin Time 26.1 SECONDS (22.3-36.8)
[2021-02-09 20:10] LABS: D Dimer 1.61 ug/mL (<0.48)
[2021-02-09 20:26] LABS: Thyroid Stimulating Hormone 0.729 uIU/mL (0.465-4.680)
[2021-02-09 20:37] LABS: Free T4 Free Thyroxine 1.25 ng/mL (0.78-2.19)
[2021-02-09 21:00] LABS: Add Urine Microscopic? NO; Appearance Urine Clear (Clear); Bilirubin Urine Negative (Negative); Blood Urine Negative (Negative); Color Urine Straw (Yellow); Glucose Urine UA Negative (Negative); Ketones Urine Negative (Negative); Leukocyte Esterase Ur Negative LEU/UL (Negative); Nitrate Urine Negative (Negative); Protein Urine Negative (Negative); Urobilinogen Urine Negative mg/dL (<2.0)
== END 2021-02-09 22:09 | disposition home or self-care (01) ==
PROVIDERS: Family Medicine; Emergency Provider Nurse Practitioner
DX: K80.20 Calculus of gallbladder without cholecystitis without obstruction (principal); F41.0 Panic disorder [episodic paroxysmal anxiety]; E87.6 Hypokalemia; N83.202 Unspecified ovarian cyst, left side; E66.9 Obesity, unspecified; Z68.35 Body mass index [BMI] 35.0-35.9, adult; R00.0 Tachycardia, unspecified; R94.31 Abnormal electrocardiogram [ECG] [EKG]
CPT/HCPCS: 36415; 71046; 71275; 74177; 80048; 80076; 81003; 81025; 83735; 84439; 84443; 84484; 85025; 85380; 85610; 85730; 93005; 99284; A9270; Q9967

== ENCOUNTER 2021-08-05 09:45 | Outpatient (CLI) | payer OTHER, SELFPAY ==
--- NOTE | 2021-08-05 | EST_ITS ---
Patient Info Name: Marbella Michael Age: 30 years : 1990 Gender: Female Ht: 60 in Wt: 186 lbs BSA: 1.93 m2 Exam Date: 08/05/2021 10:15 AM Exam Location: [facility] Stress Patient Status: Outpatient Admit Date: 08/05/2021 Staff Ordering Physician: ElianaAntonia MD Attending Provider: ElianaAntonia MD Exercise Technologist: Katia Wade CT Nurse: ABIEL CHAMBERS NP Exam Type: CA stress test treadmill Study Info Indications R94.31 - Abnormal electrocardiogram ECG EKG A treadmill exercise stress test was performed. Summary 1. Abnormal ST segment depression consistent with myocardial ischemia. 2. Poor exercise capacity for age. 3. Limiting dyspnea. 4. Further cardiac/ischemic evaluation. Protocol: [facility] ECG Details Stage: REST Duration (min): 0 min : 54 sec Speed (mph): 0.0 Grade (%): 0 HR (bpm): 113 SBP (mmHg): 144 DBP (mmHg): 81 METS: --- Stage: REST Duration (min): 6 min : 11 sec Speed (mph): 0.0 Grade (%): 0 HR (bpm): 130 SBP (mmHg): 144 DBP (mmHg): 81 METS: --- Stage: STAGE 1 Duration (min): 1 min : 0 sec Speed (mph): 1.7 Grade (%): 10 HR (bpm): 150 SBP (mmHg): 144 DBP (mmHg): 81 METS: --- Stage: STAGE 1 Duration (min): 2 min : 0 sec Speed (mph): 1.7 Grade (%): 10 HR (bpm): 161 SBP (mmHg): 144 DBP (mmHg): 81 METS: --- Stage: STAGE 1 Duration (min): 3 min : 0 sec Speed (mph): 1.7 Grade (%): 10 HR (bpm): 166 SBP (mmHg): 195 DBP (mmHg): 85 METS: --- Stage: STAGE 2 Duration (min): 1 min : 0 sec Speed (mph): 2.5 Grade (%): 12 HR (bpm): 180 SBP (mmHg): 195 DBP (mmHg): 85 METS: --- Stage: STAGE 2 Duration (min): 2 min : 0 sec Speed (mph): 2.5 Grade (%): 12 HR (bpm): 184 SBP (mmHg): 200 DBP (mmHg): 87 METS: --- Stage: STAGE 2 Duration (min): 2 min : 1 sec Speed (mph): 2.5 Grade (%): 12 HR (bpm): 184 SBP (mmHg): 200 DBP (mmHg): 87 METS: --- Stage: RECOVERY Duration (min): 0 min : 58 sec Speed (mph): 0.0 Grade (%): 0 HR (bpm): 166 SBP (mmHg): 200 DBP (mmHg): 87 METS: --- Stage: RECOVERY Duration (min): 1 min : 58 sec Speed (mph): 0.0 Grade (%): 0 HR (bpm): 151 SBP (mmHg): 200 DBP (mmHg): 87 METS: --- Stage: RECOVERY Duration (min): 2 min : 58 sec Speed (mph): 0.0 Grade (%): 0 HR (bpm): 146 SBP (mmHg): 162 DBP (mmHg): 79 METS: --- Stage: RECOVERY Duration (min): 3 min : 58 sec Speed (mph): 0.0 Grade (%): 0 HR (bpm): 147 SBP (mmHg): 162 DBP (mmHg): 79 METS: --- Stage: RECOVERY Duration (min): 4 min : 58 sec Speed (mph): 0.0 Grade (%): 0 HR (bpm): 144 SBP (mmHg): 153 DBP (mmHg): 71 METS: --- Stage: RE
== END 2021-08-05 09:46 | disposition home or self-care (01) ==
LOC: ANHCARD 09:47
PROVIDERS: PCP Internal Medicine; Visit Provider Internal Medicine
DX: R94.31 Abnormal electrocardiogram [ECG] [EKG] (principal); R94.39 Abnormal result of other cardiovascular function study
CPT/HCPCS: 93017